=== PATIENT | male | born 1960 | race African-American/Black ===

== ENCOUNTER 2020-06-25 16:05 | Inpatient (IN) | payer BC ==
[~2020-06-25] VITALS: Ht 177.8 cm; Wt 136.1 kg
[2020-06-25 16:05] VITALS: BP 102/51
--- NOTE | 2020-06-25 16:05 | NUR ---
ED Nurse Note: PT ARRIVED WITH RA 861 DUE TO WEAKNESS FROM HOME. PER EMS PT SISTER CALLED FOUND HIM ON THE GROUND AFTER PT GOT UP AND FELL TO FLOOR. PT APPEARS TO BE HAVING SOB AND EXPIRATORY WHEEZES. SATURATING AT 100% ROOM AIR. PT HAS BILATERAL LOWER EXTREMITY EDEMA. 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 BLOOD SENT TO LAB.
--- NOTE | 2020-06-25 16:10 | NUR ---
ED Nurse Note: pt is a poor histrian, unable to recall medications
--- NOTE | 2020-06-25 16:37 | NUR ---
ED Nurse Note: XRAY AT BEDSIDE
[2020-06-25 17:07] LABS: HEMATOCRIT 23.8 % (42.0-52.0); HEMOGLOBIN 7.6 G/DL (14.2-18.0); MEAN CORPUSCULAR VOLUME 89 FL (80-99); PLATELET COUNT 186 K/UL (150-450); RED BLOOD COUNT 2.67 M/UL (4.70-6.10); RED CELL DISTRIBUTION WIDTH 15.9 % (11.6-14.8); WHITE BLOOD COUNT 13.9 K/UL (4.8-10.8)
--- NOTE | 2020-06-25 17:10 | NUR ---
ED Nurse Note: provided pt with urinal bottle. pt said he will attempt to urinate
[2020-06-25 17:14] LABS: INR 2.1 (0.9-1.1); PARTIAL THROMBOPLASTIN TIME 37 SEC (23-33)
[2020-06-25 17:43] LABS: ALBUMIN 3.5 G/DL (3.4-5.0); ALBUMIN/GLOBULIN RATIO 0.9 (1.0-2.7); BILIRUBIN,TOTAL 0.5 MG/DL (0.2-1.0); CALCIUM 9.4 MG/DL (8.5-10.1); CREATININE 29.6 MG/DL (0.55-1.30)
--- NOTE | 2020-06-25 17:43 | Emergency Room Report ---
History of Present Illness General Chief Complaint: Generalized Weakness Source: Patient Present Illness HPI 60-year-old male presents to ED for evaluation. Brought in by EMS from home. States he feels weak. Appears short of breath. Denies chest pain. States has been feeling this way for a few weeks now. Notes leg swelling. States he normally takes a water pill. Does not know the names of his medications. No other aggravating relieving factors. Denies any other associated symptoms Allergies: Coded Allergies: No Known Allergies (Unverified , 06/25/20) COVID-19 Screening Contact w/high risk pt: No Experienced COVID-19 symptoms?: No COVID-19 Testing performed PERCOLATOR OPERATOR: No Patient History Past Medical History: HTN Past Surgical History: none Pertinent Family History: none Social History: Denies: smoking, alcohol use, drug use Immunizations: UTD Reviewed Nursing Documentation: PMH: Agreed; PSxH: Agreed Nursing Documentation-PMH Hx Hypertension: Yes Review of Systems All Other Systems: negative except mentioned in HPI Physical Exam Vital Signs Date Time Temp Pulse Resp B/P (MAP) Pulse Ox O2 Delivery O2 Flow Rate FiO2 06/25/20 16:02 98.2 110 20 117/73 (88) 99 Room Air Sp02 EP Interpretation: reviewed, normal General Appearance: no apparent distress, alert, GCS 15, non-toxic, obese Head: normocephalic, atraumatic Eyes: bilateral eye normal inspection, bilateral eye PERRL ENT: hearing grossly normal, normal pharynx, no angioedema, normal voice Neck: full range of motion, supple/symm/no masses Respiratory: chest non-tender, lungs clear, normal breath sounds, speaking full sentences Cardiovascular #1: regular rate, rhythm, no edema Cardiovascular #2: 2+ carotid (R), 2+ carotid (L), 2+ radial (R), 2+ radial (L), 2+ dorsalis pedis (R), 2+ dorsalis pedis (L) Gastrointestinal: normal bowel sounds, non tender, soft, non-distended, no guarding, no rebound Rectal: deferred Genitourinary: normal inspection, no CVA tenderness Musculoskeletal: back normal, normal range of motion, gait/station normal, non- tender, swelling - 2+ Neurologic: alert, motor strength/tone normal, oriented x3, sensory intact, responsive, speech normal Psychiatric: judgement/insight normal, memory normal, mood/affect normal, no suicidal/homicidal ideation Reflexes: 3+ bicep (R), 3+ bicep (L), 3+ tricep (R), 3+ tricep (L), 3+ knee (R), 3+ knee (L) Skin: other - see nursing notes Lymphatic: no adenopathy Procedures Critical Care Time Critical Care Time i. I feel this is a highly complex case requiring extensive working including EKG/Rhythm strip, Xray/CT/US, Blood/urine lab work, repeat exams while in ED, and administration of strong opiates/narcotics for pain control, [facility]. Total time: 60 min bedside evaluation and treatment excludes procedures (EKG). Reason for critical care: renal failure, elevated troponin, hyperkalemia Possible complications: hypotension, hypertension, [place], shock, arrhythmias, metabolic acidosis, end organ damage, respiratory failure. Interventions: Labs, EKG, chest x-ray, rapid Covid, calcium, fluids/D50, Lasix, Kayexalate, D5W with bicarb, consultation with surgery, consultation with nephrology Course: Patient presenting with weakness. Troponin 1.6, potassium 6, BUN/creatinine markedly elevated. Patient appears confused. Likely uremic. D iscussed with nephrology, discussed with surgery. INR greater than 2 need to give FFP prior to placing dialysis catheter. Given calcium and insulin D50. Given Kayexalate and Lasix. Started on D5W with bicarb Consultations: nursing staff, EMS, family Performed by: Dr Avila Tolerated well condition = critical j. because of unstable vital signs this patient had a condition that could potentially threaten life or limb. I feel this is a critical patient who required my full attention while patient was considered critical. Total Critical Care Time excluding procedures was greater than 60 minutes Medical Decision Making Diagnostic Impression: Primary Impression: NSTEMI (non-ST elevated myocardial infarction) Additional Impressions: Renal failure Qualified Codes: N17.9 - Acute kidney failure, unspecified; N18.9 - Chronic kidney disease, unspecified Hyperkalemia, diminished renal excretion ER Course Hospital Course 60-year-old male presents with weakness, shortness of breath, fluid in legs Differential diagnoses include: [place]/unstable angina, V. tach, bradycardia, hyperkalemia, fluid overload Clinical course Patient placed on stretcher. 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 After initial history and physical I ordered labs, EKG chest x-ray Covid rapid negative labs reviewed- potassium 6.0. BUN > 200, Cr>29.6, patient anemic, trop 1.6 EKG - sinus tachycardia no acute ischemic changes interpreted by pr CXR - no acute process Patient appears encephalopathy can confused. Likely uremic. Given calcium. Given insulin D50. Given Lasix. Given bicarb. Given Kayexalate. Discussed with surgery. Discussed with nephrology. We will defer emergent benedicto lysis catheter placement as he is coagulopathy. We will give FFP started on D5w with bicarb. 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 History of obstructive uropathy possibly prostate CA. Last seen at [facility] about 1 month ago. I. I feel this is a highly complex case requiring extensive working including EKG/Rhythm strip, Xray/CT/US, Blood/urine lab work, repeat exams while in ED, and administration of strong opiates/narcotics for pain control, admission to hospital or close patient follow up. Diagnosis - NSTEMI, renal failure, hyperkalemia admitted to ICU in critcal condition Labs Test 06/25/20 15:20 06/25/20 17:55 White Blood Count 13.9 K/UL (4.8-10.8) Red Blood Count 2.67 M/UL (4.70-6.10) Hemoglobin 7.6 G/DL (14.2-18.0) Hematocrit 23.8 % (42.0-52.0) Mean Corpuscular Volume 89 FL (80-99) Mean Corpuscular Hemoglobin 28.6 PG (27.0-31.0) Mean Corpuscular Hemoglobin Concent 32.0 G/DL (32.0-36.0) Red Cell Distribution Width 15.9 % (11.6-14.8) Platelet Count 186 K/UL (150-450) Mean Platelet Volume 6.4 FL (6.5-10.1) Neutrophils (%) (Auto) % (45.0-75.0) Lymphocytes (%) (Auto) % (20.0-45.0) Monocytes (%) (Auto) % (1.0-10.0) Eosinophils (%) (Auto) % (0.0-3.0) Basophils (%) (Auto) % (0.0-2.0) Differential Total Cells Counted 100 Neutrophils % (Manual) 90 % (45-75) Lymphocytes % (Manual) 4 % (20-45) Monocytes % (Manual) 6 % (1-10) Eosinophils % (Manual) 0 % (0-3) Basophils % (Manual) 0 % (0-2) Band Neutrophils 0 % (0-8) Platelet Estimate Adequate Platelet Morphology Normal Polychromasia 1+ Anisocytosis 1+ Prothrombin Time 22.1 SEC (9.30-11.50) Prothromb Time International Ratio 2.1 (0.9-1.1) Activated Partial Thromboplast Time 37 SEC (23-33) D-Dimer > 35.20 mg/L FEU Sodium Level 147 MMOL/L (136-145) Potassium Level 6.0 MMOL/L (3.5-5.1) Chloride Level 107 MMOL/L (98-107) Carbon Dioxide Level 8 MMOL/L (21-32) Anion Gap 32 mmol/L (5-15) Blood Urea Nitrogen 220 mg/dL (7-18) Creatinine 29.6 MG/DL (0.55-1.30) Estimat Glomerular Filtration Rate 1.8 mL/min (>60) Glucose Level 181 MG/DL (74-106) Lactic Acid Level 4.80 mmol/L (0.4-2.0) 2.40 mmol/L (0.66-2.22) Calcium Level 9.4 MG/DL (8.5-10.1) Ferritin 1000 NG/ML (8-388) Total Bilirubin 0.5 MG/DL (0.2-1.0) Aspartate Amino Transf (AST/SGOT) 95 U/L (15-37) Alanine Aminotransferase (ALT/SGPT) 41 U/L (12-78) Alkaline Phosphatase 100 U/L (46-116) Lactate Dehydrogenase 796 U/L (81-234) Troponin I 1.626 ng/mL (0.000-0.056) C-Reactive Protein, Quantitative 15.4 mg/dL (0.00-0.90) Pro-B-Type Natriuretic Peptide 822 pg/mL (0-125) Total Protein 7.5 G/DL (6.4-8.2) Albumin 3.5 G/DL (3.4-5.0) Globulin 4.0 g/dL Albumin/Globulin Ratio 0.9 (1.0-2.7) Lipase 791 U/L (73-393) EKG Diagnostic Results Troponin ordered: Yes Rate: tachycardiac Rhythm: NSR ST Segments: no acute changes ASA given to the pt in ED: No Rhythm Strip Diag. Results EP Interpretation: yes Rhythm: NSR, no PVC's, no ectopy Chest X-Ray Diagnostic Results Chest X-Ray Diagnostic Results : Chest X-Ray Ordered: Yes # of Views/Limited/Complete: 1 View Indication: Shortness of Breath EP Interpretation: Yes Interpretation: no consolidation, no effusion, no pneumothorax, no acute cardiopulmonary disease Impression: No acute disease Electronically Signed by: Electronically signed by Indra Avila MD Last Vital Signs Date Time Temp Pulse Resp B/P (MAP) Pulse Ox O2 Delivery O2 Flow Rate FiO2 06/25/20 16:05 98.2 107 26 102/51 100 Room Air Status: improved Disposition: ADMITTED INPATIENT Condition: Critical Referrals: NOT CHOSEN IPA/,REFERRING (PCP) Indra Avila MD Jun 25, 2020 17:43
--- NOTE | 2020-06-25 17:49 | NUR ---
ED Nurse Note: type/screen sent to lab
--- NOTE | 2020-06-25 18:00 | NUR ---
ED Nurse Note: Pt sinus tach 100-110. Pt aware of pt LA 4.8, per ermd not septic "acidosis related to kidney failure".
[2020-06-25 18:05] VITALS: BP 120/47
[2020-06-25] MEDS ORDERED: Sodium Bicarbonate 50ml Carp IV ONE (18:15)
[2020-06-25] MEDS ORDERED: Insulin Human Regular 100units/ml 3ml IV ONE (18:15)
[2020-06-25] MEDS ORDERED: Calcium Gluconate 1gm/10ml vial IVP ONE (18:15)
--- NOTE | 2020-06-25 18:29 | NUR ---
ED Nurse Note: Lactic acid reflex sent to lab
--- NOTE | 2020-06-25 18:31 | History and Physical ---
History of Present Illness General Date patient seen: Jun 25, 2020 Reason for Hospitalization: Generalized Weakness Present Illness HPI Patient is a very poor historian. Alert and oriented to self, and month but not day or year. He is unable to answer most of the questions. This is a 60 year old male [place] [facility] [place] and shortness of breath. Patient tells me he has been weak and short of breath for 2 weeks. When asked if he seek medical attention he tells me he was recently hospitalized at [facility] but he is not clear about the course of hospitalization. He doesn't know his baseline Scr but sees a director of construction, Peng Ivory. He says he no longer has DM and that his A1c is normal now. He denies chest pain, palpitations, fever, chills, nausea, vomiting, diarrhea, LOC, loss of vision or focal weakness. PMH: HTN Past surgical history: unknown social history: says he lives alone, says he does not smoke tobacco , drink etoh or do illicit drugs family history: unable to obtain In the ER he received 40 mg iv lasix, 50 bicarb, d50m insulin 10 EKG without peaked t waves, no acute st-t changes Allergies: Coded Allergies: No Known Allergies (Unverified , 06/25/20) COVID-19 Screening Contact w/high risk pt: No Experienced COVID-19 symptoms?: No Patient History Healthcare decision maker Resuscitation status Advanced Directive on File Review of Systems Constitutional: Reports: malaise, weakness Eye: Denies: no symptoms, see HPI, eye pain, blurred vision, tearing, double vision, nose pain, nose congestion, acuity changes, discharge, other ENT: Denies: no symptoms, see HPI, ear pain, ear discharge, nose pain, nose congestion, throat pain, throat swelling, mouth pain, hearing loss, nasal discharge, other Respiratory: Reports: shortness of breath Cardiovascular: Reports: no symptoms, see HPI, chest pain, edema, palpitations, syncope, PND, other Gastrointestinal: Denies: no symptoms, see HPI, abdominal pain, constipation, diarrhea, nausea, vomiting, melena, hematemesis, other Genitourinary: Denies: no symptoms, see HPI, discharge, dysuria, frequency, hematuria, pain, retention, incontinence, urgency, vag bleed/dc, other Musculoskeletal: Denies: no symptoms, see HPI, back pain, gout, joint pain, joint swelling, muscle pain, muscle stiffness, other Skin: Denies: no symptoms, see HPI, rash, change in color, change in hair/nails, dryness, lesions, other Psychiatric: Denies: no symptoms, see HPI, prior hx, anxiety, depressed feelings, emotional problems, SI, HI, hallucinations, other Neurological: Denies: no symptoms, see HPI, headache, numbness, paresthesia, seizure, tingling, tremors, focal weakness, syncope, dizziness, other Endocrine: Denies: no symptoms, see HPI, excessive sweating, flushing, intolerance to temperature, increased thirst, increased urine, unexplained weight loss, other Hematologic/Lymphatic: Denies: no symptoms, see HPI, anemia, blood clots, easy bleeding, easy bruising, swollen glands, diathesis, other Physical Exam General Appearance: confused, mild distress, obese Lines, tubes and drains: peripheral HEENT: normocephalic, atraumatic, anicteric, PERRL Neck: non-tender, normal alignment, supple Respiratory/Chest: lungs clear, normal breath sounds, no respiratory distress, respiratory distress - moderate, accessory muscle use Cardiovascular/Chest: normal peripheral pulses, tachycardia Abdomen: normal bowel sounds, soft, no mass, other - obese Extremities: normal range of motion, moderate edema Neurologic: pickle sorter II-XII grossly normal, alert - alert and oriented x2, responsive, other - tremor in hands Musculoskeletal: normal muscle bulk Last 24 Hour Vital Signs Date Time Temp Pulse Resp B/P (MAP) Pulse Ox O2 Delivery O2 Flow Rate FiO2 06/25/20 18:05 98.2 108 23 120/47 98 Room Air 06/25/20 16:05 98.2 107 26 102/51 100 Room Air 06/25/20 16:05 107 26 Room Air 06/25/20 16:02 98.2 110 20 117/73 (88) 99 Room Air Laboratory Tests Test 06/25/20 15:20 White Blood Count 13.9 K/UL (4.8-10.8) H Red Blood Count 2.67 M/UL (4.70-6.10) L Hemoglobin 7.6 G/DL (14.2-18.0) L Hematocrit 23.8 % (42.0-52.0) L Mean Corpuscular Volume 89 FL (80-99) Mean Corpuscular Hemoglobin 28.6 PG (27.0-31.0) Mean Corpuscular Hemoglobin Concent 32.0 G/DL (32.0-36.0) Red Cell Distribution Width 15.9 % (11.6-14.8) H Platelet Count 186 K/UL (150-450) Mean Platelet Volume 6.4 FL (6.5-10.1) L Neutrophils (%) (Auto) % (45.0-75.0) Lymphocytes (%) (Auto) % (20.0-45.0) Monocytes (%) (Auto) % (1.0-10.0) Eosinophils (%) (Auto) % (0.0-3.0) Basophils (%) (Auto) % (0.0-2.0) Differential Total Cells Counted 100 Neutrophils % (Manual) 90 % (45-75) H Lymphocytes % (Manual) 4 % (20-45) L Monocytes % (Manual) 6 % (1-10) Eosinophils % (Manual) 0 % (0-3) Basophils % (Manual) 0 % (0-2) Band Neutrophils 0 % (0-8) Platelet Estimate Adequate Platelet Morphology Normal Polychromasia 1+ Anisocytosis 1+ Prothrombin Time 22.1 SEC (9.30-11.50) H Prothromb Time International Ratio 2.1 (0.9-1.1) H Activated Partial Thromboplast Time 37 SEC (23-33) H D-Dimer Pending Sodium Level 147 MMOL/L (136-145) H Potassium Level 6.0 MMOL/L (3.5-5.1) *H Chloride Level 107 MMOL/L (98-107) Carbon Dioxide Level 8 MMOL/L (21-32) *L Anion Gap 32 mmol/L (5-15) H Blood Urea Nitrogen 220 mg/dL (7-18) H Creatinine 29.6 MG/DL (0.55-1.30) H Estimat Glomerular Filtration Rate 1.8 mL/min (>60) Glucose Level 181 MG/DL (74-106) H Lactic Acid Level 4.80 mmol/L (0.4-2.0) H Calcium Level 9.4 MG/DL (8.5-10.1) Ferritin 1000 NG/ML (8-388) H Total Bilirubin 0.5 MG/DL (0.2-1.0) Aspartate Amino Transf (AST/SGOT) 95 U/L (15-37) H Alanine Aminotransferase (ALT/SGPT) 41 U/L (12-78) Alkaline Phosphatase 100 U/L (46-116) Lactate Dehydrogenase 796 U/L (81-234) H Troponin I 1.626 ng/mL (0.000-0.056) C-Reactive Protein, Quantitative 15.4 mg/dL (0.00-0.90) H Pro-B-Type Natriuretic Peptide 822 pg/mL (0-125) H Total Protein 7.5 G/DL (6.4-8.2) Albumin 3.5 G/DL (3.4-5.0) Globulin 4.0 g/dL Albumin/Globulin Ratio 0.9 (1.0-2.7) L Lipase 791 U/L (73-393) H Microbiology Date/Time Source Procedure Growth Status 06/25/20 16:20 Nasopharynx SARS-CoV-2 RdRp Gene Assay - Final Complete Height (Feet): 5 Height (Inches): 10.00 Weight (Pounds): 300 Medications Current Medications Medications (Trade) Dose Ordered Sig/Mookie Route PRN Reason Start Time Stop Time Status Last Admin Dose Admin Acetaminophen (Tylenol) 650 mg Q4H PRN ORAL Fever 06/25/20 18:15 07/25/20 18:14 UNV Albuterol Sulfate (Proventil) 2.5 mg EVERY 4 HOURS HHN 06/25/20 21:00 06/30/20 20:59 UNV Dextrose (Dextrose 50%) 25 ml Q30M PRN IV Hypoglycemia 06/25/20 18:15 09/23/20 18:14 UNV Dextrose (Dextrose 50%) 50 ml Q30M PRN IV Hypoglycemia 06/25/20 18:15 09/23/20 18:14 UNV Assessment/Plan Problem List: (1) High anion gap metabolic acidosis ICD Codes: E87.2 - Acidosis SNOMED: 71524146 (2) Acute kidney injury superimposed on chronic kidney disease ICD Codes: N17.9 - Acute kidney failure, unspecified; N18.9 - Chronic kidney disease, unspecified SNOMED: 38849792, 864402847 (3) NSTEMI (non-ST elevated myocardial infarction) ICD Codes: I21.4 - Non-ST elevation (NSTEMI) myocardial infarction SNOMED: 55880919 (4) Lactic acidosis ICD Codes: E87.2 - Acidosis SNOMED: 01111405 (5) Hyperkalemia ICD Codes: E87.5 - Hyperkalemia SNOMED: 16242308 (6) Anemia ICD Codes: D64.9 - Anemia, unspecified SNOMED: 167335238 (7) Elevated LFTs ICD Codes: R79.89 - Other specified abnormal findings of blood chemistry SNOMED: 393458553, 097067502 (8) Elevated lipase ICD Codes: R74.8 - Abnormal levels of other serum enzymes SNOMED: 451992140 (9) Coagulopathy ICD Codes: D68.9 - Coagulation defect, unspecified SNOMED: 61817930 (10) Severe obesity (BMI >= 40) ICD Codes: E66.01 - Morbid (severe) obesity due to excess calories SNOMED: 686594382, 627089920, 69335216406206 Status: stable, other - critical Assessment/Plan: 60 year old male with past medical history of HTN, possible CKD presented with sob and weakness for 2 weeks. Rapid Covid 19 pcr negative 1. HAGMA 2.JACINTO on CKD- ?stage 3.Hyperkalemia 4.NSTEMI 5.Coagulopathy- INR 2.2 6. Elevated LFTs- AST/ALT 2:1 ratio, alcoholic pattern 7. Lipase 791. ? pancreatitis 8.Severe normocytic anemia- Ferritin 1000- likely anemia of ESRD 9.lactic acidosis 10. Severe obesity BMI> 40 11.HTN 12.?DM Plan Admit to ICU NPO 2 units of FFP before temporary HD catheter placed. d/w Dr. Sarai Louis HD, in the morning- d/w Dr. Kaplan Kayexalate 45 mg once, recheck K, give more insulin 10, D50, lasix 40 mg iv, alb uterol Q4hrs based on repeat potassium D/W Dr. Avila Start D5W 2 amp sodium bicarbonate @75 ml/hr renal US avoid nephrotoxic medications Trend troponin- no indication for heparinizing given elevated INR and lack of chest pain 2D echo trend lactate- it's normalizing BP control with prn medications vte ppx: INR is elevated at 2.2 Code status: full code- unable to locate family on the phone I spent 70 minutes on this patient's care and 35 minutes was dedicated to critical care Critical care services performed include: telemetry, ekg review hemodynamic measurement interpretation lab data review and interpretation discussion of patient's care with ED physician and director of construction Time of note may not reflect time of encounter Brandin Morales M.D. Jun 25, 2020 18:31
[2020-06-25] MEDS ORDERED: Sodium Polystyrene Sulfonate 15gm Powder ORAL ONE (18:45)
[2020-06-25 19:00] VITALS: BP 116/54
[2020-06-25] MEDS: Albuterol ud Inhalation HHN SCH ×2 (19:00→23:28)
--- NOTE | 2020-06-25 19:30 | NUR ---
ED Nurse Note: received patient from noemi bowen. patient resting in bed with no acute distress. patient attached to monitor; vitals stable. discussed plan of care for patient; aware of pending admision.
[2020-06-25 20:00] VITALS: BP 107/60
--- NOTE | 2020-06-25 21:16 | Diagnostic Imaging Report ---
ADDENDUM - Added by Yusuf Bagley MD on 06/25/2020 9:40 PM (-08:00) There is suggestion of a subacute fracture of the lateral aspect of the left sixth rib with incomplete healing. EXAM: CT Abdomen and Pelvis Without Intravenous Contrast CLINICAL HISTORY: ABD PAIN TECHNIQUE: Axial computed tomography images of the abdomen and pelvis without intravenous contrast. CTDI is 25.4 mGy and DLP is 1407.8 mGy-cm. One or more of the following dose reduction techniques were used: automated exposure control, adjustment of the mA and/or kV according to patient size, use of iterative reconstruction technique. COMPARISON: No previous studies. FINDINGS: Limitations: Limited evaluation of viscera due to lack of intravenous contrast per Limited evaluation due to motion artifact. Lung bases: Presumed subsegmental atelectasis at the lung bases. Atypical pneumonia is felt to be unlikely. ABDOMEN: Liver: Probable mild fatty infiltration of liver. The liver is normal in contour. Gallbladder and bile ducts: Unremarkable. No calcified stones. No ductal dilation. Pancreas: Unremarkable. No ductal dilation. Spleen: Spleen is normal in contour. Adrenals: 2.5 cm probable right adrenal adenoma. Magnetic resonance imaging of the abdomen with T1-weighted in and out of phase imaging is suggested to confirm this. 1.5 cm probable left adrenal adenoma. Magnetic resonance imaging of the abdomen with T1-weighted in and out of phase imaging is suggested to confirm this finding. Kidneys and ureters: Nonspecific stranding about the perinephric spaces bilaterally. Mild fullness of the renal collecting systems bilaterally. 2.2 x 1.5 cm complexes upper pole region of the right kidney. Magnetic resonance imaging is advised for further correlation. No obstructing stones. Stomach and bowel: Presumed ingested material in the stomach. No obstruction. No mucosal thickening. PELVIS: Appendix: No findings to suggest acute appendicitis. Bladder: The bladder is underdistended. Probable bladder wall thickening indicative of cystitis. No stones. Reproductive: Prostate gland measures 6 x 7 cm and is enlarged. ABDOMEN and PELVIS: Intraperitoneal space: Unremarkable. No free air. No significant fluid collection. Bones/joints: Moderate degenerative disc disease of the visualized spine. Moderate to severe osteoarthritic changes about the sacroiliac joints. No spondylolysis or spinal listhesis. The sacrum and coccyx are unremarkable. Levoscoliosis of the visualized spine. Soft tissues: Best seen on axial image 105, there is enlargement of the left psoas muscle which measures 8.7 x 6.9 cm. Acute or subacute hemorrhage within the left psoas muscle should be considered. Ischiorectal fat is clean. 2 cm umbilical hernia containing mesenteric fat only. Vasculature: See above. Lymph nodes: There is extensive retroperitoneal lymphadenopathy. There is extensive and massive pelvic sidewall lymphadenopathy. No pelvic or inguinal lymphadenopathy. IMPRESSION: 1. Limited evaluation due to motion artifact other artifact. 2. Enlargement of the left psoas muscle with stranding about the left psoas muscle. Finding is worrisome for possible acute or subacute hemorrhage within the psoas muscle. Other etiologies include psoas abscess. This possibility hemorrhage is felt to be less likely. Correlation with laboratory values is advised. 3. There is extensive retroperitoneal and pelvic sidewall lymphadenopathy. 4. PET imaging is advised to follow. 5. Adrenal nodules which require further workup with magnetic resonance imaging. 6. Enlarged prostate gland. 7. Stranding about the perinephric spaces bilaterally. 8. Fullness of the renal pelves bilaterally most likely related to mass- effect upon the ureters by massive pelvic lymphadenopathy. 9. Probable fatty liver. 10. Complex right renal cyst which should be further characterized with magnetic resonance imaging as well. <MYCVCSECTION> Communications: 06/25/20 22:56 Call From [facility] CD for Dr. Bagley 06/25/20 22:58 Call Doctor Regarding Above results, called Perry Peoples MD on 06/25 22:58 (-08:00)
--- NOTE | 2020-06-25 22:06 | Diagnostic Imaging Report ---
EXAM: US Retroperitoneal Limited, Renal CLINICAL HISTORY: SOB TECHNIQUE: Real-time limited ultrasound of the retroperitoneum with image documentation. COMPARISON: Correlation with CT abdomen performed earlier the same day. FINDINGS: Right kidney: The right kidney demonstrates a benign simple cyst measuring 3.1 cm. No stones. No hydronephrosis. Left kidney: The left kidney demonstrates multiple simple cysts measure up to 1.4 cm. No stones. There is some mild fullness of the left renal calyces. Bladder: Evaluation of the bladder is limited due to underdistention. IMPRESSION: No renal calculi. Mild fullness of the left renal calyces.
[2020-06-25] MEDS: DEXTROSE IV SCH ×2 (22:14)
[2020-06-25] MEDS: SODIUM BICARBONATE IV SCH ×2 (22:14)
[2020-06-25 23:00] VITALS: BP 138/75
[2020-06-25] MEDS ORDERED: Phytonadione 10 mg/mL 1ml amp SUBQ ONE (23:00)
--- NOTE | 2020-06-25 23:15 | NUR ---
ED Nurse Note: 1st unit of FFPs initiated. Monitored patient at bedside for adverse transfusion reaction for initial 15 minutes. patient and vitals remained stable.
[2020-06-25 23:39] LABS: CALCIUM 9.4 MG/DL (8.5-10.1); CREATININE 29.5 MG/DL (0.55-1.30)
[2020-06-25 23:44] LABS: POTASSIUM 6.1 MMOL/L (3.5-5.1)
[2020-06-26] VITALS (23 sets, daily range): BP systolic 99–132; BP diastolic 49–79
--- NOTE | 2020-06-26 00:20 | NUR ---
ED Nurse Note: 1st unit off FFP completed. patient free of transfusion reaction. see transfusion form.
--- NOTE | 2020-06-26 01:30 | NUR ---
ED Nurse Note: followed up with lab regarding ffp; still in process.
--- NOTE | 2020-06-26 03:07 | NUR ---
ED Nurse Note: followed up with blood bank regarding 2nd unit of ffp. awaiting call back.
[2020-06-26] MEDS: Albuterol ud Inhalation HHN SCH ×6 (04:00→23:00)
--- NOTE | 2020-06-26 04:00 | NUR ---
ED Nurse Note: ekg completed at bedside. am labs drawn; sent down to lab.
--- NOTE | 2020-06-26 04:35 | NUR ---
ED Nurse Note: 2nd unit of FFPs initiated. Monitored patient at bedside for adverse transfusion reaction for initial 15 minutes. patient and vitals remained stable. see transfusion form.
[2020-06-26 04:36] LABS: HEMATOCRIT 17.9 % (42.0-52.0); MEAN CORPUSCULAR VOLUME 83 FL (80-99); PLATELET COUNT 142 K/UL (150-450); RED BLOOD COUNT 2.16 M/UL (4.70-6.10); RED CELL DISTRIBUTION WIDTH 15.7 % (11.6-14.8); WHITE BLOOD COUNT 12.3 K/UL (4.8-10.8)
[2020-06-26 04:38] LABS: HEMOGLOBIN 6.3 G/DL (14.2-18.0)
[2020-06-26 04:44] LABS: INR 1.9 (0.9-1.1)
[2020-06-26 04:51] LABS: CALCIUM 8.9 MG/DL (8.5-10.1); CREATININE 29.5 MG/DL (0.55-1.30); POTASSIUM 5.6 MMOL/L (3.5-5.1)
[2020-06-26 05:21] LABS: % IRON SATURATION 16 % (15-50); IRON 35 ug/dL (50-175); TOTAL IRON BINDING CAPACITY 216 ug/dL (250-450)
--- NOTE | 2020-06-26 05:23 | NUR ---
ED Nurse Note: PATIENT STILL UNABLE TO URINATE. PT STATES HE CANNOT REMEMBER LAST VOID. INSERTED WOOD; NO URINE OUTPUT. PT PRESENTS WITH DARK RED STOOL; COLLECTED SAMPLE. VRE CRE MRSA SWAB COLLECTED; SENT DOWN TO LAB.
--- NOTE | 2020-06-26 06:56 | NUR ---
HAND-OFF: Report given to wagner bowen. patient in stable condition. endorsed pending blood transfusion.
--- NOTE | 2020-06-26 07:10 | NUR ---
ED Nurse Note: received report from kimmy henderson rn.
--- NOTE | 2020-06-26 07:13 | NUR ---
ED Nurse Note: blood transfusion was started at 0713. vss at this time. nad noted.
--- NOTE | 2020-06-26 07:29 | NUR ---
ED Nurse Note: checked vs after 15minutes. vss at this time. no adverse reaction noted. will continue to monitor for adverse reaction.
--- NOTE | 2020-06-26 07:31 | NUR ---
ED Nurse Note: ultrasound at bedside.
--- NOTE | 2020-06-26 07:53 | NUR ---
ED Nurse Note: dr. duggan at bedside inserting triple lumen central line on right groin.
--- NOTE | 2020-06-26 08:07 | NUR ---
ED Nurse Note: gave report to andrés lyon at icu unit.
--- NOTE | 2020-06-26 08:39 | Consultation ---
History of Present Illness General Chief Complaint: Generalized Weakness Reason for Consultation: Acute renal failure Present Illness HPI This is a 60 year old male ho presented to [facility] ER for weakness and shortness of breath. Patient tells me he has been weak and short of breath for 2 weeks. When asked if he seek medical attention he tells me he was recently hospitalized at [facility] but he is not clear about the course of hospitalization. He doesn't know his baseline Scr but sees a feed mill operator, Peng Ivory. He says he no longer has DM and that his A1c is normal now. He denies chest pain, palpitations, fever, chills, nausea, vomiting, diarrhea, LOC, loss of vision or focal weakness. Discussed with patients primary feed mill operator Dr. Ivory Patient with history fo prostate cancer Most recently hospitalized at [facility] in May - baseline Cr around 3 - as recent as mid may Allergies: Coded Allergies: No Known Allergies (Unverified , 06/25/20) Patient History Healthcare decision maker Resuscitation status Advanced Directive on File Review of Systems ROS Narrative Unable to obtain due to AMS Physical Exam General Appearance: confused Lines, tubes and drains: peripheral HEENT: normocephalic, atraumatic Neck: non-tender, normal alignment Respiratory/Chest: chest wall non-tender, lungs clear Cardiovascular/Chest: normal peripheral pulses, normal rate Abdomen: normal bowel sounds, non tender Extremities: moderate edema Skin Exam: normal pigmentation Neurologic: disoriented Last 24 Hour Vital Signs Date Time Temp Pulse Resp B/P (MAP) Pulse Ox O2 Delivery O2 Flow Rate FiO2 06/26/20 07:33 112 18 100 Room Air 21 110 18 100 06/26/20 07:18 99.3 113 18 06/26/20 06:00 98.2 109 18 126/53 98 Room Air 06/26/20 05:00 98.2 112 18 130/65 98 Room Air 06/26/20 04:01 106 18 100 Room Air 21 104 20 99 06/26/20 04:00 98.2 109 17 124/66 98 Room Air 06/26/20 03:00 98.2 105 17 115/59 98 Room Air 06/26/20 02:00 98.2 109 17 112/58 98 Room Air 06/26/20 01:00 98.2 111 18 129/67 98 Room Air 06/26/20 00:00 98.2 112 17 131/79 98 Room Air 06/25/20 23:31 114 18 99 Room Air 21 111 18 98 06/25/20 23:00 98.2 109 16 138/75 98 Room Air 06/25/20 20:00 98.2 104 19 107/60 99 Room Air 06/25/20 19:00 98.2 109 21 116/54 99 Room Air 06/25/20 18:05 98.2 108 23 120/47 98 Room Air 06/25/20 16:05 98.2 107 26 102/51 100 Room Air 06/25/20 16:05 107 26 Room Air 06/25/20 16:02 98.2 110 20 117/73 (88) 99 Room Air Intake and Output 06/25/20 06/26/20 19:00 07:00 Intake Total 583 ml Output Total 0 ml Balance 0 ml 583 ml Intake IV Total 583 ml Output Urine Total 0 ml Laboratory Tests Test 06/25/20 15:20 06/25/20 17:55 06/25/20 23:00 06/26/20 04:00 White Blood Count 13.9 K/UL (4.8-10.8) H 12.3 K/UL (4.8-10.8) H Red Blood Count 2.67 M/UL (4.70-6.10) L 2.16 M/UL (4.70-6.10) L Hemoglobin 7.6 G/DL (14.2-18.0) L 6.3 G/DL (14.2-18.0) *L Hematocrit 23.8 % (42.0-52.0) L 17.9 % (42.0-52.0) L Mean Corpuscular Volume 89 FL (80-99) 83 FL (80-99) Mean Corpuscular Hemoglobin 28.6 PG (27.0-31.0) 29.0 PG (27.0-31.0) Mean Corpuscular Hemoglobin Concent 32.0 G/DL (32.0-36.0) 35.0 G/DL (32.0-36.0) Red Cell Distribution Width 15.9 % (11.6-14.8) H 15.7 % (11.6-14.8) H Platelet Count 186 K/UL (150-450) 142 K/UL (150-450) L Mean Platelet Volume 6.4 FL (6.5-10.1) L 7.0 FL (6.5-10.1) Neutrophils (%) (Auto) % (45.0-75.0) % (45.0-75.0) Lymphocytes (%) (Auto) % (20.0-45.0) % (20.0-45.0) Monocytes (%) (Auto) % (1.0-10.0) % (1.0-10.0) Eosinophils (%) (Auto) % (0.0-3.0) % (0.0-3.0) Basophils (%) (Auto) % (0.0-2.0) % (0.0-2.0) Differential Total Cells Counted 100 100 Neutrophils % (Manual) 90 % (45-75) H 88 % (45-75) H Lymphocytes % (Manual) 4 % (20-45) L 7 % (20-45) L Monocytes % (Manual) 6 % (1-10) 5 % (1-10) Eosinophils % (Manual) 0 % (0-3) 0 % (0-3) Basophils % (Manual) 0 % (0-2) 0 % (0-2) Band Neutrophils 0 % (0-8) 0 % (0-8) Platelet Estimate Adequate Decreased L Platelet Morphology Normal Normal Polychromasia 1+ Anisocytosis 1+ Prothrombin Time 22.1 SEC (9.30-11.50) H 19.5 SEC (9.30-11.50) H Prothromb Time International Ratio 2.1 (0.9-1.1) H 1.9 (0.9-1.1) H Activated Partial Thromboplast Time 37 SEC (23-33) H D-Dimer > 35.20 mg/L FEU Sodium Level 147 MMOL/L (136-145) H 144 MMOL/L (136-145) 142 MMOL/L (136-145) Potassium Level 6.0 MMOL/L (3.5-5.1) *H 6.1 MMOL/L (3.5-5.1) *H 5.6 MMOL/L (3.5-5.1) H Chloride Level 107 MMOL/L (98-107) 105 MMOL/L (98-107) 105 MMOL/L (98-107) Carbon Dioxide Level 8 MMOL/L (21-32) *L 13 MMOL/L (21-32) L 13 MMOL/L (21-32) L Anion Gap 32 mmol/L (5-15) H 25 mmol/L (5-15) H 24 mmol/L (5-15) H Blood Urea Nitrogen 220 mg/dL (7-18) H 229 mg/dL (7-18) H 232 mg/dL (7-18) H Creatinine 29.6 MG/DL (0.55-1.30) H 29.5 MG/DL (0.55-1.30) H 29.5 MG/DL (0.55-1.30) H Estimat Glomerular Filtration Rate 1.8 mL/min (>60) 1.8 mL/min (>60) 1.8 mL/min (>60) Glucose Level 181 MG/DL (74-106) H 106 MG/DL (74-106) 125 MG/DL (74-106) H Lactic Acid Level 4.80 mmol/L (0.4-2.0) H 2.40 mmol/L (0.66-2.22) H Calcium Level 9.4 MG/DL (8.5-10.1) 9.4 MG/DL (8.5-10.1) 8.9 MG/DL (8.5-10.1) Ferritin 1000 NG/ML (8-388) H Total Bilirubin 0.5 MG/DL (0.2-1.0) Aspartate Amino Transf (AST/SGOT) 95 U/L (15-37) H Alanine Aminotransferase (ALT/SGPT) 41 U/L (12-78) Alkaline Phosphatase 100 U/L (46-116) Lactate Dehydrogenase 796 U/L (81-234) H Troponin I 1.626 ng/mL (0.000-0.056) 11.240 ng/mL (0.000-0.056) C-Reactive Protein, Quantitative 15.4 mg/dL (0.00-0.90) H Pro-B-Type Natriuretic Peptide 822 pg/mL (0-125) H Total Protein 7.5 G/DL (6.4-8.2) Albumin 3.5 G/DL (3.4-5.0) Globulin 4.0 g/dL Albumin/Globulin Ratio 0.9 (1.0-2.7) L Lipase 791 U/L (73-393) H Hemoglobin A1c 5.6 % (4.3-6.0) Iron Level 35 ug/dL (50-175) L Total Iron Binding Capacity 216 ug/dL (250-450) L Percent Iron Saturation 16 % (15-50) Unsaturated Iron Binding 181 ug/dL (112-346) Test 06/26/20 05:17 Stool Occult Blood Pending Microbiology Date/Time Source Procedure Growth Status 06/26/20 05:00 Rectum Received 06/25/20 16:20 Nasopharynx SARS-CoV-2 RdRp Gene Assay - Final Complete Height (Feet): 5 Height (Inches): 10.00 Weight (Pounds): 300 Medications Current Medications Medications (Trade) Dose Ordered Sig/Mookie Route PRN Reason Start Time Stop Time Status Last Admin Dose Admin Acetaminophen (Tylenol) 650 mg Q4H PRN ORAL Temp >100.5 06/25/20 18:15 07/25/20 18:14 Albuterol Sulfate (Proventil) 2.5 mg Q4HRT HHN 06/25/20 19:00 06/30/20 18:59 06/26/20 07:29 Dextrose (Dextrose 50%) 25 ml Q30M PRN IV Hypoglycemia 06/25/20 18:15 09/23/20 18:14 Dextrose (Dextrose 50%) 50 ml Q30M PRN IV Hypoglycemia 06/25/20 18:15 09/23/20 18:14 Sodium Bicarbonate 100 ml/Dextrose 1,100 ml @ 75 mls/hr [id number] IV 06/25/20 20:45 07/25/20 20:44 06/25/20 22:14 Assessment/Plan Diagnosis Weldon I: #JACINTO on CKD- likely ATN-- ? obstructive nephropathy ? #Hyperkalemia #Metabolic acidosis h #uremic encephalopathy #HTN #h/o prostate cancer #NSTEMI - admitted to ICU [facility] - HD today - - will give mannitol - renal US- -r/o obstructive nephropathy - monitor UOP - check iron panel, ferritin - PTH, vitamin D - metop 25mg BID - aspirin 81mg daily time spent 65 min Rosalind Kaplan M.D. Jun 26, 2020 08:39
--- NOTE | 2020-06-26 08:47 | NUR ---
ED Nurse Note: pt was admitted to icu unit for dx of nstemi, sob, renal failure. vss at time of discharge. pt was transferred to unit via gurney by acls protocol with all belongings. pt a/ox4, d5 at 75ml/hr and 1unit of prbc running at 200ml/hr. nad noted.
--- NOTE | 2020-06-26 09:00 | NUR ---
NURSE NOTES: Pt was admitted to ICU from ED, transferred via [facility]. Hand off report was received from Dragan ZURITA. Pt is awake, alert, oriented to name/ only, able to follow commands, however poor historian. On room air with 98-100% O2Sat and no respiratory distress. Denies any chest pain or other discomfort at this time. Temp 99F axillary. ST on conveyor monitor, HR 116 with bilateral peripheral bounding pulses. Pt has right femoral dialysis chapo cath with pigtail, inserted within the last hour by Dr. Moon in ER prior to ICU/transfer. Pt also has two peripheral IV access, left AC #20G and right hand #18G, both saline locked, patent/intact. 1 unit of PRBC is infusing; infusion started in ER. Bilateral lower extremities are moderately edematous. Skin is intact. Pt's belonging's list was checked and signed with the transfer nurse in front of the pt. Belongings remain at pt's bedside. HOB at semi-velazquez's, bed locked, in lowest position, three side rails up, and call light within reach. Will continue to monitor pt and follow plan of care per new admission orders and protocol.
[2020-06-26 09:17] LABS: PHOSPHORUS 10.3 MG/DL (2.5-4.9)
--- NOTE | 2020-06-26 09:30 | NUR ---
NURSE NOTES: 1st unit of PRBC is now complete. Pt tolerated well without any transfusion reaction or adverse events. VS remain stable.
--- NOTE | 2020-06-26 10:18 | NUR ---
NURSE NOTES: 2nd unit of PRBC was started after blood was verified with 2nd RN. Baseline VS remain stable. Pt denies any pain or discomfort at this time.
--- NOTE | 2020-06-26 11:01 | Diagnostic Imaging Report ---
Procedure: XRAY Chest 1v Reason for study: Reason For Exam: SOB Comparison films: None. FINDINGS: A single one view chest is obtained. Vascularity is normal. The lung langford are clear bilaterally. Cardiac and mediastinal silhouette are within normal limits. CP angles are sharp. The bony thorax appear unremarkable. IMPRESSION: NO ACUTE CARDIOPULMONARY DISEASE.
[2020-06-26] MEDS: DEXTROSE IV SCH ×2 (12:01)
[2020-06-26] MEDS: SODIUM BICARBONATE IV SCH ×2 (12:01)
--- NOTE | 2020-06-26 12:29 | Cardiac Electrophysiology PN ---
Subjective Subjective [id number] NSTEMI with Troponin jump from 1 to 11 Objective Last 24 Hour Vital Signs Date Time Temp Pulse Resp B/P (MAP) Pulse Ox O2 Delivery O2 Flow Rate FiO2 06/26/20 12:00 117 26 121/59 (79) 100 06/26/20 11:48 118 16 100 06/26/20 11:46 118 16 100 Room Air 21 06/26/20 11:00 116 22 116/61 (79) 99 06/26/20 10:15 113 21 116/62 (80) 97 06/26/20 10:00 113 29 118/56 (76) 97 06/26/20 09:00 99.0 111 27 123/61 (81) 100 06/26/20 08:40 99.1 111 18 118/68 100 Room Air 06/26/20 07:33 112 18 100 Room Air 21 110 18 100 06/26/20 07:18 99.3 113 18 06/26/20 06:00 98.2 109 18 126/53 98 Room Air 06/26/20 05:00 98.2 112 18 130/65 98 Room Air 06/26/20 04:01 106 18 100 Room Air 21 104 20 99 06/26/20 04:00 98.2 109 17 124/66 98 Room Air 06/26/20 03:00 98.2 105 17 115/59 98 Room Air 06/26/20 02:00 98.2 109 17 112/58 98 Room Air 06/26/20 01:00 98.2 111 18 129/67 98 Room Air 06/26/20 00:00 98.2 112 17 131/79 98 Room Air 06/25/20 23:31 114 18 99 Room Air 21 111 18 98 06/25/20 23:00 98.2 109 16 138/75 98 Room Air 06/25/20 20:00 98.2 104 19 107/60 99 Room Air 06/25/20 19:00 98.2 109 21 116/54 99 Room Air 06/25/20 18:05 98.2 108 23 120/47 98 Room Air 06/25/20 16:05 98.2 107 26 102/51 100 Room Air 06/25/20 16:05 107 26 Room Air 06/25/20 16:02 98.2 110 20 117/73 (88) 99 Room Air Intake and Output 06/25/20 06/26/20 19:00 07:00 Intake Total 583 ml Output Total 0 ml Balance 0 ml 583 ml Intake IV Total 583 ml Output Urine Total 0 ml Laboratory Tests Test 06/25/20 15:20 06/25/20 17:55 06/25/20 23:00 06/26/20 04:00 White Blood Count 13.9 K/UL (4.8-10.8) H 12.3 K/UL (4.8-10.8) H Red Blood Count 2.67 M/UL (4.70-6.10) L 2.16 M/UL (4.70-6.10) L Hemoglobin 7.6 G/DL (14.2-18.0) L 6.3 G/DL (14.2-18.0) *L Hematocrit 23.8 % (42.0-52.0) L 17.9 % (42.0-52.0) L Mean Corpuscular Volume 89 FL (80-99) 83 FL (80-99) Mean Corpuscular Hemoglobin 28.6 PG (27.0-31.0) 29.0 PG (27.0-31.0) Mean Corpuscular Hemoglobin Concent 32.0 G/DL (32.0-36.0) 35.0 G/DL (32.0-36.0) Red Cell Distribution Width 15.9 % (11.6-14.8) H 15.7 % (11.6-14.8) H Platelet Count 186 K/UL (150-450) 142 K/UL (150-450) L Mean Platelet Volume 6.4 FL (6.5-10.1) L 7.0 FL (6.5-10.1) Neutrophils (%) (Auto) % (45.0-75.0) % (45.0-75.0) Lymphocytes (%) (Auto) % (20.0-45.0) % (20.0-45.0) Monocytes (%) (Auto) % (1.0-10.0) % (1.0-10.0) Eosinophils (%) (Auto) % (0.0-3.0) % (0.0-3.0) Basophils (%) (Auto) % (0.0-2.0) % (0.0-2.0) Differential Total Cells Counted 100 100 Neutrophils % (Manual) 90 % (45-75) H 88 % (45-75) H Lymphocytes % (Manual) 4 % (20-45) L 7 % (20-45) L Monocytes % (Manual) 6 % (1-10) 5 % (1-10) Eosinophils % (Manual) 0 % (0-3) 0 % (0-3) Basophils % (Manual) 0 % (0-2) 0 % (0-2) Band Neutrophils 0 % (0-8) 0 % (0-8) Platelet Estimate Adequate Decreased L Platelet Morphology Normal Normal Polychromasia 1+ Anisocytosis 1+ Prothrombin Time 22.1 SEC (9.30-11.50) H 19.5 SEC (9.30-11.50) H Prothromb Time International Ratio 2.1 (0.9-1.1) H 1.9 (0.9-1.1) H Activated Partial Thromboplast Time 37 SEC (23-33) H D-Dimer > 35.20 mg/L FEU Sodium Level 147 MMOL/L (136-145) H 144 MMOL/L (136-145) 142 MMOL/L (136-145) Potassium Level 6.0 MMOL/L (3.5-5.1) *H 6.1 MMOL/L (3.5-5.1) *H 5.6 MMOL/L (3.5-5.1) H Chloride Level 107 MMOL/L (98-107) 105 MMOL/L (98-107) 105 MMOL/L (98-107) Carbon Dioxide Level 8 MMOL/L (21-32) *L 13 MMOL/L (21-32) L 13 MMOL/L (21-32) L Anion Gap 32 mmol/L (5-15) H 25 mmol/L (5-15) H 24 mmol/L (5-15) H Blood Urea Nitrogen 220 mg/dL (7-18) H 229 mg/dL (7-18) H 232 mg/dL (7-18) H Creatinine 29.6 MG/DL (0.55-1.30) H 29.5 MG/DL (0.55-1.30) H 29.5 MG/DL (0.55-1.30) H Estimat Glomerular Filtration Rate 1.8 mL/min (>60) 1.8 mL/min (>60) 1.8 mL/min (>60) Glucose Level 181 MG/DL (74-106) H 106 MG/DL (74-106) 125 MG/DL (74-106) H Lactic Acid Level 4.80 mmol/L (0.4-2.0) H 2.40 mmol/L (0.66-2.22) H Calcium Level 9.4 MG/DL (8.5-10.1) 9.4 MG/DL (8.5-10.1) 8.9 MG/DL (8.5-10.1) Ferritin 1000 NG/ML (8-388) H Total Bilirubin 0.5 MG/DL (0.2-1.0) Aspartate Amino Transf (AST/SGOT) 95 U/L (15-37) H Alanine Aminotransferase (ALT/SGPT) 41 U/L (12-78) Alkaline Phosphatase 100 U/L (46-116) Lactate Dehydrogenase 796 U/L (81-234) H Troponin I 1.626 ng/mL (0.000-0.056) 11.240 ng/mL (0.000-0.056) C-Reactive Protein, Quantitative 15.4 mg/dL (0.00-0.90) H Pro-B-Type Natriuretic Peptide 822 pg/mL (0-125) H Total Protein 7.5 G/DL (6.4-8.2) Albumin 3.5 G/DL (3.4-5.0) Globulin 4.0 g/dL Albumin/Globulin Ratio 0.9 (1.0-2.7) L Lipase 791 U/L (73-393) H Hemoglobin A1c 5.6 % (4.3-6.0) Calcium (Send out) Pending Iron Level 35 ug/dL (50-175) L Total Iron Binding Capacity 216 ug/dL (250-450) L Percent Iron Saturation 16 % (15-50) Unsaturated Iron Binding 181 ug/dL (112-346) Vitamin D 25-Hydroxy Pending 25-Hydroxy Vitamin D2 Pending 25-Hydroxy Vitamin D3 Pending Parathyroid Hormone (Intact) Pending Test 06/26/20 04:55 06/26/20 05:17 Phosphorus Level 10.3 MG/DL (2.5-4.9) H Magnesium Level 2.5 MG/DL (1.8-2.4) H Stool Occult Blood Positive (NEGATIVE) Microbiology Date/Time Source Procedure Growth Status 06/26/20 05:00 Rectum Received 06/25/20 16:20 Nasopharynx SARS-CoV-2 RdRp Gene Assay - Final Complete Junito Wills MD Jun 26, 2020 12:29
--- NOTE | 2020-06-26 12:30 | NUR ---
NURSE NOTES: Pt was seen by Dr Wills. notified regarding lab results including elevated Troponin and Creatinine results and most recent ECG and 2D echo results. No new orders were received at this time. 2nd unit of PRBC is now complete. Pt tolerated well with no signs/symptoms of transfusion reactions noted. Pt denies any pain or discomfort at this time. Pt remains with baseline low tachycardia and low grade temp/99.
--- NOTE | 2020-06-26 13:00 | NUR ---
NURSE NOTES: Dr. Lackey who is covering for Dr Morales/Dr Frank was updated on pt's condition and all lab results. MD aware, pt will be receiving HD today.
--- NOTE | 2020-06-26 13:00 | NUR ---
NURSE NOTES: Order noted for hemodialysis treatment and consent received from pt. Dialysis nurse, Jayy RN is at the nurse's station. Pt was seen by Dr Lackey who is covering for Dr Frank. Per MD instructions, IV fluid can be discontinued post hemodialysis treatment. Order also was received for Renal diet for dinner and SCDs post negative venous duplex results.
--- NOTE | 2020-06-26 13:10 | Diagnostic Imaging Report ---
EXAM: ULTRASOUND Venous Duplex Scan Ochoa Leg CLINICAL HISTORY: Leg pain and edema. COMPARISON: None TECHNIQUE: Doppler examination include grayscale images obtained with and without compression, and color and spectral doppler analysis. FINDINGS: Doppler examination shows normal spontaneity, phasicity, compressibility in the bilateral lower extremities. There is no thrombus identified by grayscale. Normal color and spectral flow is identified. There is no evidence of valvular incompetency or insufficiency. IMPRESSION: UNREMARKABLE VENOUS DUPLEX.
--- NOTE | 2020-06-26 15:00 | NUR ---
NURSE NOTES: Hemodialysis was started at bedside per MD order by HD nurse/Jayy RN.
--- NOTE | 2020-06-26 15:04 | Operative Note - PDOC ---
Operative Note Operative Note Date of Operation/Procedure: Jun 26, 2020 Pre-op Diagnosis: acute renal failure hyperkalemia Procedure: right femoral temporary Hemodialysis catheter insertion Post-op Diagnosis: same as pre-op Surgeon: roopa moon md Anesthesia: local Specimen: none Complications: none Condition: unstable Estimated Blood Loss: minimal Drains: none Implant(s) used?: No Indications for Procedure 60M presented to [facility] ED from home noted to have acute renal insufficiency with elevated cr, bun, significantly abnormal labs, and notable hyperkalemia with possible ekg change. needs HD and currently no access. patient seen in ED and emergency catheter insertion performed in ED at bedside for immediate HD. coagulopathy inr elevated. risks, benefits, and alternatives discussed with patient and consent obtained. high risk for bleeding Description of Procedure patient made comfortable at the bedside in the emergency department. patient obese bmi 43. access chosen for right femoral location placement. right groin prepped and draped in standard surgical fashion. anatomic landmarks identified. local infiltrated. finder needle used and right femoral vein cannulated on first stick. good venous flow identified. guidewire placed over needle and needle removed. small skin incision made over guidewire. dilators used then 30cm temp HD catheter inserted without complication. wire removed and discarded. line sutured in place. all ports aspirated venous blood and flushed appropriately. dressings applied. patient tolerated well. line okay to use. will monitor closely for bleeding thank you Roopa Moon Jun 26, 2020 15:04
--- NOTE | 2020-06-26 15:16 | NUR ---
CONVERSION WORKER NOTE SW met w/ pt and completed the psychosocial assessment. PT presents as A&O 3-4x, appears to have slow thought process. PT resides alone in a [place] [address] [place] [address]. PT is single and does not have any children. 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 PT does not have AD/POA. Pt reports he is ambulatory w/o DME and independent w/ ADLs and IADLs. PT does not have a caregiver. PT denies having substance abuse/ETOH abuse/tobacco use and also denies having mental illness. Pt was unable to recall the name of dialysis clinic that he goes to. PT shares that he drives by self. Pt remains full code. Pt does not share any case management social worker concern/needs at this time. Emergency contacts: Margaret Carbone (sister) [phone] and Nick Cook (brother) [phone]
--- NOTE | 2020-06-26 15:31 | NUR ---
[employer]/HP/FS (06/25-06/26) FAXED TO FX [phone] PH [phone] FX [phone] PH [phone]
--- NOTE | 2020-06-26 16:00 | NUR ---
NURSE NOTES: Pt was seen by Dr. Kaplan. Per MD instructions "pt can be transferred out of ICU if he is stable after dialysis". Also instructions received to "repeat CBC and CMP at least two hours post hemodialysis treatment".
--- NOTE | 2020-06-26 16:45 | Consultation ---
DATE OF CONSULTATION: 06/26/2020 CARDIOLOGY CONSULTATION CONSULTING PHYSICIAN: Junito Wills MD REFERRING PHYSICIAN: Hipolito Frank MD REASON FOR CONSULTATION: [id number] myocardial infarction. HISTORY OF PRESENT ILLNESS: The patient is a 60-year-old gentleman, who was brought to [facility] for weakness and shortness of breath. The patient apparently has recently got 2 weeks ago and was recently hospitalized at [facility], but he is not sure about the course of hospitalization. The patient also did see a paster supervisor. Though he has had diabetes, he does not have it anymore. At the time of admission to the hospital, the patient was found to have renal failure and echocardiogram showed ejection fraction of 70%. Troponin was elevated. The patient denies any prior myocardial infarction or coronary artery disease or congestive heart failure. His hemoglobin was as low as 6.3 and he is getting second unit of blood and also received 2 units of fresh-frozen plasma. The patient also was noted to have severe bilateral lower extremity edema and received 40 mg of IV Lasix, 50 of bicarb, D50, and insulin, as potassium was 6.1. REVIEW OF SYSTEMS: Negative other than what is mentioned in history of present illness. PAST MEDICAL HISTORY: As mentioned above. FAMILY HISTORY: Noncontributory. SOCIAL HISTORY: He lives at home. Does not smoke or drink alcohol. PHYSICAL EXAMINATION: VITAL SIGNS: Show blood pressure 121/60, pulse is 117, respirations 18, and he is afebrile. HEAD AND NECK: Showed no JVD. LUNGS: Decreased breath sounds. CARDIOVASCULAR: Shows regular S1 and S2 with no gallop. ABDOMEN: Obese. EXTREMITIES: A 2+ pitting edema. LABORATORY DATA: His labs show sodium 142, potassium 5.6, BUN of 232, creatinine of 29.5, and glucose of 125. His troponin was 1.65. ASSESSMENT AND PLAN: 1. [id number] myocardial infarction. Even though the patient has renal failure with creatinine of 30, we will restart on hemodialysis; however, his troponin jumped from 1.6 yesterday to 11.2 today. EKG however does not show any ST elevation or acute ischemic changes. We will treat the patient medically with aspirin, beta-harvinder, and statin. His echocardiogram showed ejection fraction of 70%. We will repeat cardiac enzymes. 2. Severe bilateral lower extremity edema. Volume overload could be due to diastolic dysfunction. Now the patient underwent a Moises catheter in the right femoral vein and will be getting hemodialysis. 3. Acute on chronic renal failure. The patient will be getting his first dialysis today. 4. Severe hyperkalemia due to renal failure. 5. Severe anemia, getting blood transfusion. 6. Elevated liver function tests. 7. Elevated lipase of 791, possible pancreatitis. 8. Lactic acidosis. 9. Severe obesity. Thank you very much for allowing me to participate in the care of this patient. Please do not hesitate to contact me for any questions regarding my evaluation. Junito Wills M.D. DR: JOSÉ MIGUEL JOB#: [id number] CC:
--- NOTE | 2020-06-26 17:14 | General Progress Note ---
Subjective Time patient seen: 12:16 Constitutional: Denies: no symptoms, chills, diaphoresis, fever, malaise, weakness, other HEENT: Denies: no symptoms, eye pain, blurred vision, tearing, double vision, ear pain, ear discharge, nose pain, nose congestion, throat pain, throat swelling, mouth pain, mouth swelling, other Cardiovascular: Denies: no symptoms, chest pain, edema, irregular heart rate, lightheadedness, palpitations, syncope, other Respiratory: Denies: no symptoms, cough, orthopnea, shortness of breath, SOB with excertion, SOB at rest, sputum, stridor, wheezing, other Gastrointestinal/Abdominal: Denies: no symptoms, abdomen distended, abdominal pain, black stools, tarry stools, blood in stool, constipated, diarrhea, difficulty swallowing, nausea, poor appetite, poor fluid intake, rectal bleeding, vomiting, other Genitourinary: Denies: no symptoms, burning, discharge, frequency, flank pain, hematuria, incontinence, pain, urgency, other Neurologic/Psychiatric: Denies: no symptoms, anxiety, depressed, emotional problems, headache, numbness, paresthesia, pre-existing deficit, seizure, tingling, tremors, weakness, other Endocrine: Denies: no symptoms, excessive sweating, flushing, intolerance to cold, intolerance to heat, increased hunger, increased thirst, increased urine, unexplained weight gain, unexplained weight loss, other Hematologic/Lymphatic: Denies: no symptoms, anemia, easy bleeding, easy bruis ing, other Allergies: Coded Allergies: No Known Allergies (Unverified , 06/25/20) Subjective Resting comfortably in bed No acute distress Plan for HD today, patient is aware Femoral catheter placed earlier today AAOx2 (person, place, unable to start correct month) Objective Last 24 Hour Vital Signs Date Time Temp Pulse Resp B/P (MAP) Pulse Ox O2 Delivery O2 Flow Rate FiO2 06/26/20 16:00 117 06/26/20 16:00 117 20 102/69 (80) 98 06/26/20 15:59 116 16 98 Room Air 06/26/20 15:15 113 21 99/59 (72) 98 06/26/20 15:00 115 30 108/67 (81) 98 06/26/20 15:00 112 20 99/59 (72) 98 06/26/20 14:00 122 21 112/63 (79) 99 06/26/20 13:00 116 24 111/65 (80) 100 06/26/20 12:00 Room Air 06/26/20 12:00 99.0 117 26 121/59 (79) 100 06/26/20 12:00 114 06/26/20 11:48 118 16 100 06/26/20 11:46 118 16 100 Room Air 21 06/26/20 11:00 116 22 116/61 (79) 99 06/26/20 10:34 Room Air 06/26/20 10:15 113 21 116/62 (80) 97 06/26/20 10:00 113 29 118/56 (76) 97 06/26/20 09:00 99.0 111 27 123/61 (81) 100 06/26/20 08:40 99.1 111 18 118/68 100 Room Air 06/26/20 07:33 112 18 100 Room Air 21 110 18 100 06/26/20 07:18 99.3 113 18 06/26/20 06:00 98.2 109 18 126/53 98 Room Air 06/26/20 05:00 98.2 112 18 130/65 98 Room Air 06/26/20 04:01 106 18 100 Room Air 21 104 20 99 06/26/20 04:00 98.2 109 17 124/66 98 Room Air 06/26/20 03:00 98.2 105 17 115/59 98 Room Air 06/26/20 02:00 98.2 109 17 112/58 98 Room Air 06/26/20 01:00 98.2 111 18 129/67 98 Room Air 06/26/20 00:00 98.2 112 17 131/79 98 Room Air 06/25/20 23:31 114 18 99 Room Air 21 111 18 98 06/25/20 23:00 98.2 109 16 138/75 98 Room Air 06/25/20 20:00 98.2 104 19 107/60 99 Room Air 06/25/20 19:00 98.2 109 21 116/54 99 Room Air 06/25/20 18:05 98.2 108 23 120/47 98 Room Air Intake and Output 06/25/20 06/26/20 19:00 07:00 Intake Total 583 ml Output Total 0 ml Balance 0 ml 583 ml Intake IV Total 583 ml Output Urine Total 0 ml Laboratory Tests 06/25/20 17:55: Lactic Acid Level 2.40H 06/25/20 23:00: Sodium Level 144, Potassium Level 6.1*H, Chloride Level 105, Carbon Dioxide Level 13L, Anion Gap 25H, Blood Urea Nitrogen 229H, Creatinine 29.5H, Estimat Glomerular Filtration Rate 1.8, Glucose Level 106, Calcium Level 9.4 06/26/20 04:00: Sodium Level 142, Potassium Level 5.6H, Chloride Level 105, Carbon Dioxide Level 13L, Anion Gap 24H, Blood Urea Nitrogen 232H, Creatinine 29.5H, Estimat Glomerular Filtration Rate 1.8, Glucose Level 125H, Calcium Level 8.9, White Blood Count 12.3H, Red Blood Count 2.16L, Hemoglobin 6.3*L, Hematocrit 17.9L, Mean Corpuscular Volume 83, Mean Corpuscular Hemoglobin 29.0, Mean Corpuscular Hemoglobin Concent 35.0, Red Cell Distribution Width 15.7H, Platelet Count 142L, Mean Platelet Volume 7.0, Neutrophils (%) (Auto) , Lymphocytes (%) (Auto) , Monocytes (%) (Auto) , Eosinophils (%) (Auto) , Basophils (%) (Auto) , Differential Total Cells Counted 100, Neutrophils % (Manual) 88H, Lymphocytes % (Manual) 7L, Monocytes % (Manual) 5, Eosinophils % (Manual) 0, Basophils % (Manual) 0, Band Neutrophils 0, Platelet Estimate DecreasedL, Platelet Morphology Normal, Prothrombin Time 19.5H, Prothromb Time International Ratio 1.9H, Hemoglobin A1c 5.6, Calcium (Send out) [Pending], Iron Level 35L, Total Iron Binding Capacity 216L, Percent Iron Saturation 16, Unsaturated Iron Binding 181, Troponin I 11.240H, Vitamin D 25-Hydroxy [Pending], 25-Hydroxy Vitamin D2 [Pending], 25-Hydroxy Vitamin D3 [Pending], Parathyroid Hormone (Intact) [Pending] 06/26/20 04:55: Phosphorus Level 10.3H, Magnesium Level 2.5H 06/26/20 05:17: Stool Occult Blood Positive Height (Feet): 5 Height (Inches): 10.00 Weight (Pounds): 300 General Appearance: no apparent distress, obese EENT: PERRL/EOMI Neck: supple Cardiovascular: normal rate, regular rhythm Respiratory/Chest: lungs clear, normal breath sounds Abdomen: non tender, soft Extremities: normal range of motion Edema: pitting 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 Rapid Covid 19 pcr negative # HAGMA #JACINTO on CKD- ?stage #Hyperkalemia - Resolved #Lactic Acidosis Elevated BUN 220 and Cr 29.6 with K6.0. S/p Kayexalate 45 mg once, recheck K, give more insulin 10, D50, lasix 40 mg iv, albuterol Q4hrs based on repeat potassium - Permacath placed 06/26 by Surgery - Plan for HD 06/26 - Appreciate recommendations from Nephrology - Following HD will start HTN medications slowly #Coagulopathy - S/p 2U FFP prior to catheter placement - CTM for signs of bleeding - Repeat CBC in AM #Elevated LFT AST/ALT 2:1 Ratio # Elevated Lipase #? Possible Pancreatitis - Repeat LFTs in AM - CT Abd no ductal dilation or stranding - Unclear if patient uses etOH #Edema and Tenderness in LE - Venous Duplex wnl # Severe normocytic anemia- Ferritin 1000- likely anemia of ESRD #Lymphadenopathy on CT Scan - Per radiology report, patient may need further w/u with PET scan imaging # Severe obesity BMI> 40 #HTN - Restart medications slowly following HD Code status: full code- unable to locate family on the phone, called 06/27 Time spent is 34 minutes with 19 minutes spent with counseling and care coordination. D/W nurse. Time of note does not reflect time of encounter Marcela Lackey M.D. Jun 26, 2020 17:14
--- NOTE | 2020-06-26 17:31 | Consultation ---
DATE OF CONSULTATION: 06/26/2020 PULMONARY CONSULTATION CONSULTING PHYSICIAN: Baldemar Carreon MD HISTORY OF PRESENT ILLNESS: This is a 60-year-old male who is a very poor historian. He came to the emergency room with weakness, shortness of breath. Patient reports that he had been hospitalized at [facility] recently. He states he sees a dural mechanic, but he is no longer seeing him. Patient is a known diabetic. He denies alcohol or tobacco usage. Patient was seen and evaluated in the emergency room. He was found to have evidence of significant anemia with a hemoglobin of 7.6. He is also found to have hyperkalemia and renal failure with a creatinine of 29. He was admitted to the ICU. Overnight, he has been seen by Surgery and a dialysis catheter has been placed in anticipation of urgent dialysis. PAST MEDICAL HISTORY: Hypertension, diabetes mellitus, disease. ALLERGIES: None reported. HOME MEDICATIONS: Patient unable to recall. REVIEW OF SYSTEMS: Denies any headaches, hematemesis, melena, hematochezia, night sweats, or weight loss. SOCIAL HISTORY: No alcohol or tobacco use. PHYSICAL EXAMINATION: GENERAL: Reveals a 60-year-old male. HEENT: Unremarkable. CHEST: Shows diminished breath sounds bilaterally. HEART: Normal heart sounds. ABDOMEN: Soft. EXTREMITIES: There is no edema. VITAL SIGNS: Blood pressure is 109/60, heart rate 110, respirations 22, O2 saturation on room air. LABORATORY DATA: Lab testing discussed above notable for INR of 2.1, creatinine of 29, potassium now 5.6. White count is 12, hemoglobin 6.3. Occult blood is positive. IMAGING STUDIES: Patient underwent a chest x-ray, which showed clear lung langford bilaterally. IMPRESSION: 1. Hyperkalemia. 2. Anemia. 3. Hypotension. 4. Tachycardia. 5. Acute on chronic renal failure. DISCUSSION: I have been asked to participate in the care of this critically ill patient in ICU. He has received a dialysis catheter and dialysis has been initiated. He needs attention paid to his high potassium and he has received Kayexalate and glucose. He will need to be transfused. 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 Baldemar Carreon M.D. DR: ANDREW JOB#: [id number] CC:
--- NOTE | 2020-06-26 18:00 | NUR ---
NURSE NOTES: Hemodialysis treatment is now complete. Total of 1L of fluid was removed during HD. Pt tolerated well without any adverse events.
--- NOTE | 2020-06-26 18:54 | NUR ---
NURSE NOTES: Tylenol was administered PO for Bdvg=545.3F axillary. Pt denies any pain or discomfort at this time.
--- NOTE | 2020-06-26 19:10 | NUR ---
NURSE HAND-OFF REPORT: Latest Vital Signs: Temperature 98.6 , Pulse 115 , B/P 118 /55 , Respiratory Rate 57 , O2 SAT 97 , Room Air. Vital Sign Comment: Tylenol was administered at 1854 for Temp of 101.3F axillary and endorsed to ec teacher nurse for reassessment. EKG Rhythm: Sinus Tachycardia Rhythm change?: N MD Notified?: - MD Response: Latest Dixon Fall Score: 35 Fall Risk: Medium Risk Safety Measures: Call light Within Reach, Bed Alarm Zone 2, Side Rails Side Rails x2, Bed position Low and Locked. Fall Precautions: Yellow Socks Yellow Gown Door Sign Patient Fall Education Report given to Brielle ZURITA. Endorsed plan of care.
--- NOTE | 2020-06-26 19:20 | NUR ---
NURSE NOTES: Received patient from YUDITH Del Rosario. Will continue plan of care.
--- NOTE | 2020-06-26 20:00 | NUR ---
NURSE NOTES: Patient is awake, alert and oriented x 3. On room air O2sat:97%, showing no signs of distress and states no pain. Folwy catheter in tact but scant amount of urine output. IV sites: left A/C 20g TKO, Right hand 18g saline locked, and right femoral chapo cath with pigtail used for HD and medication administration. Safety measures in place; bed low, locked and alarm is on. Will continue plan of care.
[2020-06-26 20:14] LABS: HEMOGLOBIN 7.5 G/DL (14.2-18.0); MEAN CORPUSCULAR VOLUME 85 FL (80-99); PLATELET COUNT 113 K/UL (150-450); RED BLOOD COUNT 2.59 M/UL (4.70-6.10); RED CELL DISTRIBUTION WIDTH 14.8 % (11.6-14.8); WHITE BLOOD COUNT 13.6 K/UL (4.8-10.8)
[2020-06-26 20:16] LABS: BASOPHILS % (AUTO) 0.3 % (0.0-2.0); LYMPHOCYTES % (AUTO) 4.5 % (20.0-45.0); MONOCYTES % (AUTO) 6.8 % (1.0-10.0); NEUTROPHILS % (AUTO) 88.4 % (45.0-75.0)
[2020-06-26 20:42] LABS: ALBUMIN/GLOBULIN RATIO 0.8 (1.0-2.7); BILIRUBIN,TOTAL 0.8 MG/DL (0.2-1.0); CALCIUM 8.6 MG/DL (8.5-10.1); CREATININE 20.9 MG/DL (0.55-1.30); POTASSIUM 3.7 MMOL/L (3.5-5.1)
--- NOTE | 2020-06-26 21:15 | NUR ---
NURSE NOTES: Transferred patient to SDU and placed into room 242-2. environmental issues instructor placed. Belongings accounted for. Report given to YUDITH Sandhu. Patient is stable.
[2020-06-27] VITALS: BP 129/74
--- NOTE | 2020-06-27 | NUR ---
NURSE NOTES: Report received from YUDITH Sandhu. Upon assessment pt is awake, alert, PERRLA. Observed with delayed speech but responsive to verbal and tactile stimuli. Vitals WNL. 5-lead EKG shows ST 100 bpm. Temperature of 100.0 observed. Cooling measures initiated. Observed with bilateral weakness of the extremities. Pt states 0/10 pain. Observed with right femoral chapo cath; soiled and site is bleeding. Pt bowser draining to gravity; made aware of hx of anuria. L AC and R Hand IV patent and intact. Bed kept in lowest and locked position. call light within reach. Will monitor.
[2020-06-27] MEDS: Albuterol ud Inhalation HHN SCH ×2 (03:11→07:42)
--- NOTE | 2020-06-27 03:30 | NUR ---
NURSE NOTES: Observed Sinus Tacchy [address] Elevation on monitor. EKG done shows Sinus Tacchy with STEMI r/o artifacts. When assessing pt, no complaints of Chest Pain, SOB, upset GI. Only c/o hiccups. Vitals WNL. Saturating 100%. Will monitor.
[2020-06-27 04:00] VITALS: BP 127/63
--- NOTE | 2020-06-27 04:00 | NUR ---
NURSE NOTES: Repeated EKG which shows ST with possible pericarditis. Will leave message for MD. Pt appears with no cardiopulmonary distress. No c/o pain or SOB when asked noted. Saturating 100% Will monitor.
--- NOTE | 2020-06-27 05:00 | NUR ---
NURSE NOTES: Pt appears to be resting in bed comfortably. Responds to verbal and tactile stimuli. No distress noted. Will monitor.
[2020-06-27 05:54] LABS: BLOOD UREA NITROGEN 163 mg/dL (7-18); CALCIUM 8.6 MG/DL (8.5-10.1); CARBON DIOXIDE 21 MMOL/L (21-32); CHLORIDE 102 MMOL/L (98-107); POTASSIUM 4.1 MMOL/L (3.5-5.1); SODIUM 144 MMOL/L (136-145)
[2020-06-27 05:57] LABS: PHOSPHORUS 9.3 MG/DL (2.5-4.9)
--- NOTE | 2020-06-27 06:56 | NUR ---
NURSE NOTES: Troponin 35.47 and serum creat appears to be elevated 22. H&H and Plt appears below normal range. Dr. Wills notified. Ordered to do STAT EKG which shows NSR with ST elevation at 92 BPM. Pt is asymptomatic when assessing for cardiac distress. 0/10 pain. Awaiting further orders.
--- NOTE | 2020-06-27 07:00 | NUR ---
NURSE HAND-OFF REPORT: Important Events on Shift: Possible ST elevation; NFO from Dr. Wills aside from EKG Patient Status: Stable Diet: Reg Pending Orders: Y Pending Results/Labs: Y Pending MD notification: Y Latest Vital Signs: Temperature 99.9 , Pulse 100 , B/P 127 /63 , Respiratory Rate 20 , O2 SAT 100 , Room Air, O2 Flow Rate . Vital Sign Comment: Febrile - Tylenol given EKG Rhythm: Sinus Tachycardia Rhythm change?: N MD Notified?: - MD Response: Latest Dixon Fall Score: 35 Fall Risk: Medium Risk Safety Measures: Call light Within Reach, Bed Alarm Zone 2, Side Rails Side Rails x2, Bed position Low and Locked. Fall Precautions: Yellow Socks Yellow Gown Door Sign Patient Fall Education Report given to .
--- NOTE | 2020-06-27 07:20 | NUR ---
NURSE NOTES: Received report from YUDITH Thrasher. Pt is awake, pleasant, not in pulmonary and cardiac distress. A/O x 3-4. Sinus Rhythm on the traffic monitor specialist. Tolerating room air with O2 99-100%. Vital signs are stable. Peripheral IVs are intact and patent. Hickman catheter is intact and patent draining yellowish urine. Moises cath in right femoral is noted, dressing intact. Bed is locked and in lowest position, bed alarm on, call light is with the pt. Head of bed is elevated. Will continue to monitor pt. Will continue with the plan of care.
--- NOTE | 2020-06-27 07:57 | NUR ---
NURSE NOTES: Informed Dr Wills about elevated ST segment in leads II and III and elevated Troponin of 35.5. Dr. Wills is on the way to see the pt. Will continue with the plan of care.
--- NOTE | 2020-06-27 08:44 | Nephrology Progress Note ---
Assessment/Plan Plan #JACINTO on CKD- likely ATN-- ? obstructive nephropathy ? #Hyperkalemia #Metabolic acidosis h #uremic encephalopathy #HTN #h/o prostate cancer #NSTEMI - admitted to ICU - [facility] - HD again today - plan to transfer to [facility] for [facility] - will give mannitol - renal US- -r/o obstructive nephropathy - monitor UOP - check iron panel, ferritin - PTH, vitamin D - metop 25mg BID - aspirin 81mg daily time spent 65 min Subjective ROS Limited/Unobtainable: No Constitutional: Reports: weakness HEENT: Denies: no symptoms, eye pain, blurred vision, tearing, double vision, ear pain, ear discharge, nose pain, nose congestion, throat pain, throat swelling, mouth pain, mouth swelling, other Genitourinary: Denies: no symptoms, burning, discharge, frequency, flank pain, hematuria, incontinence, pain, urgency, other Neurologic/Psychiatric: Denies: no symptoms, anxiety, depressed, emotional problems, headache, numbness, paresthesia, pre-existing deficit, seizure, tingli ng, tremors, weakness, other Subjective underwent HD last night plan to transfer to [facility] for [facility] Objective Objective Last 24 Hour Vital Signs Date Time Temp Pulse Resp B/P (MAP) Pulse Ox O2 Delivery O2 Flow Rate FiO2 06/27/20 07:39 101 18 100 Room Air 21 98 16 99 06/27/20 06:30 92 18 06/27/20 04:00 Room Air 06/27/20 04:00 99.9 100 20 127/63 (84) 100 06/27/20 04:00 99.8 06/27/20 03:32 101 06/27/20 03:11 100 18 100 Room Air 21 99 18 99 06/27/20 00:00 100.0 95 22 129/74 (92) 98 06/27/20 00:00 Room Air 06/26/20 23:00 105 06/26/20 21:00 100.0 105 30 132/64 (86) 98 06/26/20 21:00 109 31 112/49 (70) 98 06/26/20 21:00 105 06/26/20 20:27 115 118/55 06/26/20 20:02 119 06/26/20 20:00 98.6 115 57 109/57 (74) 97 06/26/20 20:00 98.6 06/26/20 20:00 Room Air 06/26/20 19:18 118 06/26/20 19:00 114 40 127/59 (81) 98 06/26/20 18:54 101.3 112 37 120/62 (81) 99 06/26/20 18:00 112 37 120/62 (81) 99 111 06/26/20 17:00 117 25 121/61 (81) 98 06/26/20 16:00 117 06/26/20 16:00 117 20 102/69 (80) 98 06/26/20 16:00 Room Air 06/26/20 15:59 116 16 98 Room Air 06/26/20 15:15 113 21 99/59 (72) 98 06/26/20 15:00 115 30 108/67 (81) 98 06/26/20 15:00 112 20 99/59 (72) 98 06/26/20 14:00 122 21 112/63 (79) 99 06/26/20 13:00 116 24 111/65 (80) 100 06/26/20 12:00 Room Air 06/26/20 12:00 99.0 117 26 121/59 (79) 100 06/26/20 12:00 114 06/26/20 11:48 118 16 100 06/26/20 11:46 118 16 100 Room Air 21 06/26/20 11:00 116 22 116/61 (79) 99 06/26/20 10:34 Room Air 06/26/20 10:15 113 21 116/62 (80) 97 06/26/20 10:00 113 29 118/56 (76) 97 06/26/20 09:00 99.0 111 27 123/61 (81) 100 Intake and Output 06/26/20 06/27/20 19:00 07:00 Intake Total 487.5 ml 170 ml Output Total 1005 ml 5 ml Balance -517.5 ml 165 ml Intake Oral 170 ml IV Total 487.5 ml Output Urine Total 5 ml 5 ml Hemodialysis UF 1000 ml # Bowel Movements 1 3 Laboratory Tests 06/26/20 18:02: White Blood Count 13.6H, Red Blood Count 2.59L, Hemoglobin 7.5L, Hematocrit 22.0L, Mean Corpuscular Volume 85, Mean Corpuscular Hemoglobin 29.2, Mean Corpuscular Hemoglobin Concent 34.4, Red Cell Distribution Width 14.8, Platelet Count 113L, Mean Platelet Volume 7.0, Neutrophils (%) (Auto) 88.4H, Lymphocytes (%) (Auto) 4.5L, Monocytes (%) (Auto) 6.8, Eosinophils (%) (Auto) 0.0, Basophils (%) (Auto) 0.3, Sodium Level 145, Potassium Level 3.7, Chloride Level 102, Carbon Dioxide Level 21, Anion Gap 22H, Blood Urea Nitrogen 158H, Creatinine 20.9H, Estimat Glomerular Filtration Rate 2.8, Glucose Level 135H, Calcium Level 8.6, Total Bilirubin 0.8, Aspartate Amino Transf (AST/SGOT) 214H, Alanine Am inotransferase (ALT/SGPT) 59, Alkaline Phosphatase 84, Total Protein 6.7, Albumin 3.0L, Globulin 3.7, Albumin/Globulin Ratio 0.8L 06/27/20 03:30: Sodium Level 144, Potassium Level 4.1, Chloride Level 102, Carbon Dioxide Level 21, Blood Urea Nitrogen 163H, Creatinine 22.0H, Estimat Glomerular Filtration Rate 2.7, Glucose Level 129H, Calcium Level 8.6, Phosphorus Level 9.3H, Magnesium Level 2.4, Troponin I 35.474H Height (Feet): 5 Height (Inches): 10.00 Weight (Pounds): 300 Rosalind Kaplan M.D. Jun 27, 2020 08:44
--- NOTE | 2020-06-27 08:48 | Cardiac Electrophysiology PN ---
Assessment/Plan Assessment/Plan 1. ST-elevation myocardial infarction in a patient that started with NSTEMI in the setting of Renal failure and had Hb 6.5. Already received his first HD via Right groin Moises yesterday and receieved 2 units of PRBC Troponin jumped from 1.6 to 11.2 yesterday to 35 today . EKG initially not show any ST elevation but this AM shows ST elevation in inferolateral leads. Already on aspirin, beta-harvinder, and statin. No chest pain and stable h emodynamically at this time. Echocardiogram showed ejection fraction of 70%. DANICA Lackey from Dr Frank's group and Dr. Paiz at [facility]. 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 Severe bilateral lower extremity edema. Volume overload could be due to diastolic dysfunction. Now the patient underwent a Moises catheter in the right femoral vein and got hemodialysis. 3. Acute on chronic renal failure. S/P Moises and first dialysis yesterday 4. Severe hyperkalemia due to renal failure. 5. Severe anemia, S/P 2 units of blood transfusion. 6. Elevated liver function tests. 7. Elevated lipase of 791, possible pancreatitis. 8. Lactic acidosis. 9. Severe obesity. DW RN, Dr Dr Marcela Lackey from Dr. Simpsons group and Dr. Paiz at [facility] Subjective Subjective No chest pain but Troponin jumped from 11 to 35. ECG now showed ST elevation in inferolateral leads. DANICA Lackey from Dr Simpsons group and Dr. Paiz at [facility]. 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 Objective Last 24 Hour Vital Signs Date Time Temp Pulse Resp B/P (MAP) Pulse Ox O2 Delivery O2 Flow Rate FiO2 06/27/20 06:30 92 18 06/27/20 04:00 Room Air 06/27/20 04:00 99.9 100 20 127/63 (84) 100 06/27/20 04:00 99.8 06/27/20 03:32 101 06/27/20 03:11 100 18 100 Room Air 21 99 18 99 06/27/20 00:00 100.0 95 22 129/74 (92) 98 06/27/20 00:00 Room Air 06/26/20 23:00 105 06/26/20 21:00 100.0 105 30 132/64 (86) 98 06/26/20 21:00 109 31 112/49 (70) 98 06/26/20 21:00 105 06/26/20 20:27 115 118/55 06/26/20 20:02 119 06/26/20 20:00 98.6 115 57 109/57 (74) 97 06/26/20 20:00 98.6 06/26/20 20:00 Room Air 06/26/20 19:18 118 06/26/20 19:00 114 40 127/59 (81) 98 06/26/20 18:54 101.3 112 37 120/62 (81) 99 06/26/20 18:00 112 37 120/62 (81) 99 111 06/26/20 17:00 117 25 121/61 (81) 98 06/26/20 16:00 117 06/26/20 16:00 117 20 102/69 (80) 98 06/26/20 16:00 Room Air 06/26/20 15:59 116 16 98 Room Air 06/26/20 15:15 113 21 99/59 (72) 98 06/26/20 15:00 115 30 108/67 (81) 98 06/26/20 15:00 112 20 99/59 (72) 98 06/26/20 14:00 122 21 112/63 (79) 99 06/26/20 13:00 116 24 111/65 (80) 100 06/26/20 12:00 Room Air 06/26/20 12:00 99.0 117 26 121/59 (79) 100 06/26/20 12:00 114 06/26/20 11:48 118 16 100 06/26/20 11:46 118 16 100 Room Air 21 06/26/20 11:00 116 22 116/61 (79) 99 06/26/20 10:34 Room Air 06/26/20 10:15 113 21 116/62 (80) 97 06/26/20 10:00 113 29 118/56 (76) 97 06/26/20 09:00 99.0 111 27 123/61 (81) 100 06/26/20 08:40 99.1 111 18 118/68 100 Room Air Intake and Output 06/26/20 06/27/20 19:00 07:00 Intake Total 487.5 ml 170 ml Output Total 1005 ml 5 ml Balance -517.5 ml 165 ml Intake Oral 170 ml IV Total 487.5 ml Output Urine Total 5 ml 5 ml Hemodialysis UF 1000 ml # Bowel Movements 1 3 Laboratory Tests Test 06/26/20 18:02 06/27/20 03:30 White Blood Count 13.6 K/UL (4.8-10.8) H Red Blood Count 2.59 M/UL (4.70-6.10) L Hemoglobin 7.5 G/DL (14.2-18.0) L Hematocrit 22.0 % (42.0-52.0) L Mean Corpuscular Volume 85 FL (80-99) Mean Corpuscular Hemoglobin 29.2 PG (27.0-31.0) Mean Corpuscular Hemoglobin Concent 34.4 G/DL (32.0-36.0) Red Cell Distribution Width 14.8 % (11.6-14.8) Platelet Count 113 K/UL (150-450) L Mean Platelet Volume 7.0 FL (6.5-10.1) Neutrophils (%) (Auto) 88.4 % (45.0-75.0) H Lymphocytes (%) (Auto) 4.5 % (20.0-45.0) L Monocytes (%) (Auto) 6.8 % (1.0-10.0) Eosinophils (%) (Auto) 0.0 % (0.0-3.0) Basophils (%) (Auto) 0.3 % (0.0-2.0) Sodium Level 145 MMOL/L (136-145) 144 MMOL/L (136-145) Potassium Level 3.7 MMOL/L (3.5-5.1) 4.1 MMOL/L (3.5-5.1) Chloride Level 102 MMOL/L (98-107) 102 MMOL/L (98-107) Carbon Dioxide Level 21 MMOL/L (21-32) 21 MMOL/L (21-32) Anion Gap 22 mmol/L (5-15) H Blood Urea Nitrogen 158 mg/dL (7-18) H 163 mg/dL (7-18) H Creatinine 20.9 MG/DL (0.55-1.30) H 22.0 MG/DL (0.55-1.30) H Estimat Glomerular Filtration Rate 2.8 mL/min (>60) 2.7 mL/min (>60) Glucose Level 135 MG/DL (74-106) H 129 MG/DL (74-106) H Calcium Level 8.6 MG/DL (8.5-10.1) 8.6 MG/DL (8.5-10.1) Total Bilirubin 0.8 MG/DL (0.2-1.0) Aspartate Amino Transf (AST/SGOT) 214 U/L (15-37) H Alanine Aminotransferase (ALT/SGPT) 59 U/L (12-78) Alkaline Phosphatase 84 U/L (46-116) Total Protein 6.7 G/DL (6.4-8.2) Albumin 3.0 G/DL (3.4-5.0) L Globulin 3.7 g/dL Albumin/Globulin Ratio 0.8 (1.0-2.7) L Phosphorus Level 9.3 MG/DL (2.5-4.9) H Magnesium Level 2.4 MG/DL (1.8-2.4) Troponin I 35.474 ng/mL (0.000-0.056) Microbiology Date/Time Source Procedure Growth Status 06/26/20 05:00 Rectum Received 06/25/20 16:40 Blood Blood Culture - Preliminary Gram Positive Cocci Resulted 06/25/20 16:25 Blood Blood Culture - Preliminary NO GROWTH AFTER 24 HOURS Resulted 06/25/20 16:20 Nasopharynx SARS-CoV-2 RdRp Gene Assay - Final Complete Objective HEAD AND NECK: No JVD. LUNGS: Decreased breath sounds. CARDIOVASCULAR: Shows regular S1 and S2 with no gallop. ABDOMEN: Obese. EXTREMITIES: 2+ pitting edema. Junito Wills MD Jun 27, 2020 08:48
[2020-06-27] MEDS ORDERED: Aspirin Baby 81mg ORAL SCH (09:00)
[2020-06-27 09:16] VITALS: BP 131/72
[2020-06-27] MEDS ORDERED: Heparin 25,000u/D5W 500ml 500 ML IV SCH (09:31)
--- NOTE | 2020-06-27 09:37 | General Progress Note ---
Subjective Date patient seen: Jun 27, 2020 Time patient seen: 09:19 ROS Limited/Unobtainable: No Constitutional: Denies: no symptoms, chills, diaphoresis, fever, malaise, weakness, other HEENT: Denies: no symptoms, eye pain, blurred vision, tearing, double vision, ear pain, ear discharge, nose pain, nose congestion, throat pain, throat swelling, mouth pain, mouth swelling, other Cardiovascular: Denies: no symptoms, chest pain, edema, irregular heart rate, lightheadedness, palpitations, syncope, other Respiratory: Denies: no symptoms, cough, orthopnea, shortness of breath, SOB with excertion, SOB at rest, sputum, stridor, wheezing, other Gastrointestinal/Abdominal: Denies: no symptoms, abdomen distended, abdominal pain, black stools, tarry stools, blood in stool, constipated, diarrhea, difficulty swallowing, nausea, poor appetite, poor fluid intake, rectal bleeding, vomiting, other Genitourinary: Denies: no symptoms, burning, discharge, frequency, flank pain, hematuria, incontinence, pain, urgency, other Neurologic/Psychiatric: Denies: no symptoms, anxiety, depressed, emotional problems, headache, numbness, paresthesia, pre-existing deficit, seizure, tingling, tremors, weakness, other Endocrine: Denies: no symptoms, excessive sweating, flushing, intolerance to cold, intolerance to heat, increased hunger, increased thirst, increased urine, unexplained weight gain, unexplained weight loss, other Hematologic/Lymphatic: Denies: no symptoms, anemia, easy bleeding, easy bruising, other Allergies: Coded Allergies: No Known Allergies (Unverified , 06/25/20) Subjective Overnight noted to have Troponin of 35 No chest pain, however EKG concerning for ST-changes Per patient no chest pain Overall patient states that he is feeling well Objective Last 24 Hour Vital Signs Date Time Temp Pulse Resp B/P (MAP) Pulse Ox O2 Delivery O2 Flow Rate FiO2 06/27/20 09:16 101 131/72 06/27/20 07:39 101 18 100 Room Air 21 98 16 99 06/27/20 06:30 92 18 06/27/20 04:00 Room Air 06/27/20 04:00 99.9 100 20 127/63 (84) 100 12/9/20 04:00 99.8 06/27/20 03:32 101 06/27/20 03:11 100 18 100 Room Air 21 99 18 99 06/27/20 00:00 100.0 95 22 129/74 (92) 98 06/27/20 00:00 Room Air 06/26/20 23:00 105 06/26/20 21:00 100.0 105 30 132/64 (86) 98 06/26/20 21:00 109 31 112/49 (70) 98 06/26/20 21:00 105 06/26/20 20:27 115 118/55 06/26/20 20:02 119 06/26/20 20:00 98.6 115 57 109/57 (74) 97 06/26/20 20:00 98.6 06/26/20 20:00 Room Air 06/26/20 19:18 118 06/26/20 19:00 114 40 127/59 (81) 98 06/26/20 18:54 101.3 112 37 120/62 (81) 99 06/26/20 18:00 112 37 120/62 (81) 99 111 06/26/20 17:00 117 25 121/61 (81) 98 06/26/20 16:00 117 06/26/20 16:00 117 20 102/69 (80) 98 06/26/20 16:00 Room Air 06/26/20 15:59 116 16 98 Room Air 06/26/20 15:15 113 21 99/59 (72) 98 06/26/20 15:00 115 30 108/67 (81) 98 06/26/20 15:00 112 20 99/59 (72) 98 06/26/20 14:00 122 21 112/63 (79) 99 06/26/20 13:00 116 24 111/65 (80) 100 06/26/20 12:00 Room Air 06/26/20 12:00 99.0 117 26 121/59 (79) 100 06/26/20 12:00 114 06/26/20 11:48 118 16 100 06/26/20 11:46 118 16 100 Room Air 21 06/26/20 11:00 116 22 116/61 (79) 99 06/26/20 10:34 Room Air 06/26/20 10:15 113 21 116/62 (80) 97 06/26/20 10:00 113 29 118/56 (76) 97 Intake and Output 06/26/20 06/27/20 19:00 07:00 Intake Total 487.5 ml 170 ml Output Total 1005 ml 5 ml Balance -517.5 ml 165 ml Intake Oral 170 ml IV Total 487.5 ml Output Urine Total 5 ml 5 ml Hemodialysis UF 1000 ml # Bowel Movements 1 3 Laboratory Tests 06/26/20 18:02: White Blood Count 13.6H, Red Blood Count 2.59L, Hemoglobin 7.5L, Hematocrit 22.0L, Mean Corpuscular Volume 85, Mean Corpuscular Hemoglobin 29.2, Mean Corpuscular Hemoglobin Concent 34.4, Red Cell Distribution Width 14.8, Platelet Count 113L, Mean Platelet Volume 7.0, Neutrophils (%) (Auto) 88.4H, Lymphocytes (%) (Auto) 4.5L, Monocytes (%) (Auto) 6.8, Eosinophils (%) (Auto) 0.0, Basophils (%) (Auto) 0.3, Sodium Level 145, Potassium Level 3.7, Chloride Level 102, Carbon Dioxide Level 21, Anion Gap 22H, Blood Urea Nitrogen 158H, Creatinine 20.9H, Estimat Glomerular Filtration Rate 2.8, Glucose Level 135H, Calcium Level 8.6, Total Bilirubin 0.8, Aspartate Amino Transf (AST/SGOT) 214H, Alanine Aminotransferase (ALT/SGPT) 59, Alkaline Phosphatase 84, Total Protein 6.7, Albumin 3.0L, Globulin 3.7, Albumin/Globulin Ratio 0.8L 06/27/20 03:30: Sodium Level 144, Potassium Level 4.1, Chloride Level 102, Carbon Dioxide Level 21, Blood Urea Nitrogen 163H, Creatinine 22.0H, Estimat Glomerular Filtration Rate 2.7, Glucose Level 129H, Calcium Level 8.6, Phosphorus Level 9.3H, Magne sium Level 2.4, Troponin I 35.474H Height (Feet): 5 Height (Inches): 10.00 Weight (Pounds): 300 General Appearance: no apparent distress, alert, morbidly obese EENT: PERRL/EOMI Neck: non-tender, supple Cardiovascular: normal rate, regular rhythm, other - chest tenderness Respiratory/Chest: normal breath sounds, no respiratory distress Abdomen: normal bowel sounds Extremities: normal range of motion Edema: pitting Neurologic: 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 Rapid Covid 19 pcr negative #Dynamic ST-changes #Elevated Troponin Troponin elevation 11-->[address]-deviations from yesterday. No chest pain currently on exam. Plan: - D/w Cardiology, plan for urgent transfer to [facility] - Patient to proceed to catheterization lab - Aspirin, Heparin gtt - Statin, BB - Repeat troponin pending # HAGMA #JACINTO on CKD- ?stage #Hyperkalemia - Resolved #Lactic Acidosis Elevated BUN 220 and Cr 29.6 with K6.0. S/p Kayexalate 45 mg once, recheck K, give more insulin 10, D50, lasix 40 mg iv, albuterol Q4hrs based on repeat potassium - Permacath placed 06/26 by Surgery - Plan for HD 06/26 - Appreciate recommendations from Nephrology - Following HD will start HTN medications slowly #Coagulopathy #Likely ANemia 2' Chronic Disease - S/p 2U FFP prior to catheter placement - CTM for signs of bleeding - Hb 7 #Elevated LFT AST/ALT 2:1 Ratio # Elevated Lipase #? Possible Pancreatitis - Repeat LFTs in AM - CT Abd no ductal dilation or stranding - Unclear if patient uses etOH #Edema and Tenderness in LE - Venous Duplex wnl # Severe normocytic anemia- Ferritin 1000- likely anemia of ESRD #Lymphadenopathy on CT Scan - Per radiology report, patient may need further w/u with PET scan imaging # Severe obesity BMI> 40 #HTN - Restart medications slowly following HD Code status: full code- D/w Margaret (Sister) over the phone who is aware that patient is being transferred to [facility]. Time spent is 35 minutes with 19 minutes spent with counseling and care coordination. D/W nursing staff and consultants. Time of note does not reflect time of encounter Marcela Lackey M.D. Jun 27, 2020 09:37
--- NOTE | 2020-06-27 10:00 | NUR ---
Gave report to YUDITH Marshall of [facility]. 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 Pt is awake, alert/oriented x 2-3, not in cardio-pulmonary distress, stable vital signs of BP 115/60, HR 86, RR 18, O2 sat 99%. Denies chest pain. Pt is tolerating room air with O2 of 99%.
--- NOTE | 2020-06-27 10:15 | NUR ---
Gave report to [facility] personnel. 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 Pt is awake, alert, not in cardio-pulmonary distress, stable vital signs of BP 115/60, HR 86, RR 18, O2 sat 99%. Pt is tolerating room air with O2 of 99%
[2020-06-27 10:45] LABS: HEMATOCRIT 21.8 % (42.0-52.0); HEMOGLOBIN 7.6 G/DL (14.2-18.0); MEAN CORPUSCULAR VOLUME 84 FL (80-99); PLATELET COUNT 118 K/UL (150-450); RED CELL DISTRIBUTION WIDTH 15.5 % (11.6-14.8); WHITE BLOOD COUNT 16.2 K/UL (4.8-10.8)
--- NOTE | 2020-06-27 11:52 | Pulmonology Progress Note ---
Subjective ROS Limited/Unobtainable: No Interval Events: Being transferred to [facility] for heart cath Constitutional: Reports: no symptoms HEENT: Repors: no symptoms Respiratory: Reports: no symptoms Cardiovascular: Reports: no symptoms Gastrointestinal/Abdominal: Reports: no symptoms Allergies: Coded Allergies: No Known Allergies (Unverified , 06/25/20) Objective Last 24 Hour Vital Signs Date Time Temp Pulse Resp B/P (MAP) Pulse Ox O2 Delivery O2 Flow Rate FiO2 06/27/20 09:16 101 131/72 06/27/20 07:39 101 18 100 Room Air 21 98 16 99 06/27/20 06:30 92 18 06/27/20 04:00 Room Air 06/27/20 04:00 99.9 100 20 127/63 (84) 100 06/27/20 04:00 99.8 06/27/20 03:32 101 06/27/20 03:11 100 18 100 Room Air 21 99 18 99 06/27/20 00:00 100.0 95 22 129/74 (92) 98 06/27/20 00:00 Room Air 06/26/20 23:00 105 06/26/20 21:00 100.0 105 30 132/64 (86) 98 06/26/20 21:00 109 31 112/49 (70) 98 06/26/20 21:00 105 06/26/20 20:27 115 118/55 06/26/20 20:02 119 06/26/20 20:00 98.6 115 57 109/57 (74) 97 06/26/20 20:00 98.6 06/26/20 20:00 Room Air 06/26/20 19:18 118 06/26/20 19:00 114 40 127/59 (81) 98 06/26/20 18:54 101.3 112 37 120/62 (81) 99 06/26/20 18:00 112 37 120/62 (81) 99 111 06/26/20 17:00 117 25 121/61 (81) 98 06/26/20 16:00 117 06/26/20 16:00 117 20 102/69 (80) 98 06/26/20 16:00 Room Air 06/26/20 15:59 116 16 98 Room Air 06/26/20 15:15 113 21 99/59 (72) 98 06/26/20 15:00 115 30 108/67 (81) 98 06/26/20 15:00 112 20 99/59 (72) 98 06/26/20 14:00 122 21 112/63 (79) 99 06/26/20 13:00 116 24 111/65 (80) 100 06/26/20 12:00 Room Air 06/26/20 12:00 99.0 117 26 121/59 (79) 100 06/26/20 12:00 114 Intake and Output 06/26/20 06/27/20 19:00 07:00 Intake Total 487.5 ml 170 ml Output Total 1005 ml 5 ml Balance -517.5 ml 165 ml Intake Oral 170 ml IV Total 487.5 ml Output Urine Total 5 ml 5 ml Hemodialysis UF 1000 ml # Bowel Movements 1 3 General Appearance: no acute distress HEENT: normocephalic Respiratory: chest wall non-tender, lungs clear Cardiovascular: normal peripheral pulses Abdomen: normal bowel sounds Microbiology Date/Time Source Procedure Growth Status 06/26/20 05:00 Rectum Received 06/25/20 16:40 Blood Blood Culture - Preliminary Gram Positive Cocci Resulted 06/25/20 16:25 Blood Blood Culture - Preliminary NO GROWTH AFTER 24 HOURS Resulted 06/25/20 16:20 Nasopharynx SARS-CoV-2 RdRp Gene Assay - Final Complete Laboratory Tests 06/26/20 18:02: White Blood Count 13.6H, Red Blood Count 2.59L, Hemoglobin 7.5L, Hematocrit 22.0L, Mean Corpuscular Volume 85, Mean Corpuscular Hemoglobin 29.2, Mean Corpuscular Hemoglobin Concent 34.4, Red Cell Distribution Width 14.8, Platelet Count 113L, Mean Platelet Volume 7.0, Neutrophils (%) (Auto) 88.4H, Lymphocytes (%) (Auto) 4.5L, Monocytes (%) (Auto) 6.8, Eosinophils (%) (Auto) 0.0, Basophils (%) (Auto) 0.3, Sodium Level 145, Potassium Level 3.7, Chloride Level 102, Carbon Dioxide Level 21, Anion Gap 22H, Blood Urea Nitrogen 158H, Creatinine 20.9H, Estimat Glomerular Filtration Rate 2.8, Glucose Level 135H, Calcium Level 8.6, Total Bilirubin 0.8, Aspartate Amino Transf (AST/SGOT) 214H, Alanine Aminotransferase (ALT/SGPT) 59, Alkaline Phosphatase 84, Total Protein 6.7, Albumin 3.0L, Globulin 3.7, Albumin/Globulin Ratio 0.8L 06/27/20 03:30: Sodium Level 144, Potassium Level 4.1, Chloride Level 102, Carbon Dioxide Level 21, Blood Urea Nitrogen 163H, Creatinine 22.0H, Estimat Glomerular Filtration Rate 2.7, Glucose Level 129H, Calcium Level 8.6, Phosphorus Level 9.3H, Magnesium Level 2.4, Troponin I 35.474H 06/27/20 09:20: White Blood Count 16.2H, Red Blood Count 2.60L, Hemoglobin 7.6L, Hematocrit 21.8L, Mean Corpuscular Volume 84, Mean Corpuscular Hemoglobin 29.3, Mean Corpuscular Hemoglobin Concent 34.9, Red Cell Distribution Width 15.5H, Platelet Count 118L, Mean Platelet Volume 7.7, Neutrophils (%) (Auto) , Lymphocytes (%) (Auto) , Monocytes (%) (Auto) , Eosinophils (%) (Auto) , Basophils (%) (Auto) , Neutrophils % (Manual) [Pending], Lymphocytes % (Manual) [Pending], Platelet Estimate [Pending], Platelet Morphology [Pending] 06/27/20 09:25: Troponin I [Pending], Activated Partial Thromboplast Time 36H, D-Dimer > 35.20H 06/27/20 11:00: Troponin I 29.636H Assessment/Plan Assessment/Plan IMPRESSION: 1. Hyperkalemia. 2. Anemia. 3. Hypotension. 4. Tachycardia. 5. Acute on chronic renal failure. 6. STEMI DISCUSSION: He has received a dialysis catheter and dialysis has been initiated. Agree with transfer planning to [facility] for heart cath Aixa Ortega Omar Syed MD Jun 27, 2020 11:52
[2020-06-27] MEDS ORDERED: Vancomycin 1.25gm Premix q24h IVPB SCH ×2 (12:00→18:00)
--- NOTE | 2020-06-27 16:39 | NUR ---
CASE MANAGEMENT:REVIEW 06/25 60 YR OLD MALE BIBA FROM HOME CC: GENERALIZED WEAKNESS, COUGH AND FEVER. FOUND DOWN BY SISTER SI: NSTEMI. RENAL FAILURE.HYPERKALEMIA 98.3 110 20 117/73 99% ON RA WBC+13.9 H/H-7.6/23.8 K+6.0 CO2-8 TROPONIN(+) 1.626 IS:IV CA GLUC iv insulin iv d50 iv nahco3 iv lasix kayexalate VIT K SQ CHEST XRAY BLOOD CX : TO STEP DOWN UNIT IS: TRANSFUSE 2 UNIT PRBC'S
[2020-06-27] MEDS ORDERED: Dyna-Hex 2% Top Sol 2oz TOPIC SCH (20:00)
[2020-06-27] MEDS ORDERED: Atorvastatin 20mg tab ORAL SCH (21:00)
--- NOTE | 2020-06-28 10:41 | NUR ---
[employer]/REVIEW (06/26-06/27) FAXED TO FX [phone] PH [phone] FX [phone] PH [phone]
== END 2020-06-27 10:20 | disposition other institution (70) | DRG 280 ==
LOC: EDBD 16:05 → EMR 16:36 → EDBEDREQ 16:40 → ICU 16:55 → EDBEDREQ 17:55 → EDBEDREQSVC 17:55 → EDBEDREQ 06-26 05:33 → 2W 06-26 21:00
PROC: 30233K1 Transfusion of Nonautologous Frozen Plasma into Peripheral Vein, Percutaneous Approach (ICD-10-PCS; principal; 2020-06-25)
PROC: 5A1D70Z Performance of Urinary Filtration, Intermittent, Less than 6 Hours Per Day (ICD-10-PCS; 2020-06-26)
PROC: 30233N1 Transfusion of Nonautologous Red Blood Cells into Peripheral Vein, Percutaneous Approach (ICD-10-PCS; 2020-06-26)
PROC: 06HM33Z Insertion of Infusion Device into Right Femoral Vein, Percutaneous Approach (ICD-10-PCS; 2020-06-26)
DX: I21.4 Non-ST elevation (NSTEMI) myocardial infarction (principal); K85.90 Acute pancreatitis without necrosis or infection, unspecified; N17.9 Acute kidney failure, unspecified; E87.2 Acidosis; D68.9 Coagulation defect, unspecified; Z68.41 Body mass index [BMI] 40.0-44.9, adult; N18.9 Chronic kidney disease, unspecified; E66.01 Morbid (severe) obesity due to excess calories; E87.5 Hyperkalemia; D64.9 Anemia, unspecified; I12.9 Hypertensive chronic kidney disease with stage 1 through stage 4 chronic kidney disease, or unspecified chronic kidney disease; D63.1 Anemia in chronic kidney disease; Z85.46 Personal history of malignant neoplasm of prostate
CPT/HCPCS: 36415; 71045; 74176; 76770; 80048; 80053; 82270; 82306; 82728; 83036; 83540; 83550; 83605; 83615; 83690; 83735; 83880; 83970; 84100; 84484; 85007; 85025; 85379; 85610; 85730; 86140; 86850; 86900; 86901; 86920; 86927; 87040; 87081; 87181; 93005; 93306; 93970; 94640; 94664; 96374; 96375; 99291; U0002